=== PATIENT | female | born 1985 | race Caucasian/White ===

== ENCOUNTER 2020-02-12 12:38 | Outpatient (REF) | payer MEDICAID, SELFPAY | END 2020-02-12 12:39 | disposition home or self-care (01) | LOC: HO.LAB 12:38 | PROVIDERS: PCP Nurse Practitioner Family; Visit Provider Internal Medicine | DX: Z20.828 Contact with and (suspected) exposure to other viral communicable diseases (principal) | CPT/HCPCS: 36415; 87635 ==

== ENCOUNTER 2020-07-05 17:08 | Emergency (ER) | payer MEDICAID, SELFPAY ==
--- NOTE | ~2020-07-05 | US_ITS ---
EXAMINATION: US OBSTETRICAL ULTRASOUND CLINICAL INFORMATION: Nausea and vomiting. Rule out ectopic . COMPARISON: None. LMP: 05/19/2020. Gestational age by maternal dates is 6 weeks 5 days. Estimated date of delivery by maternal dates is 02/23/2021. TECHNIQUE: Transabdominal sonographic evaluation of the pelvis. FINDINGS: There is a single intrauterine gestational sac with visible yolk sac, embryo/fetus, and cardiac activity. There is no significant subchorionic hemorrhage or hematoma. HR: 122 beats per minute. CRL (crown rump length): 0.75 cm (6 weeks 5 days +/- 4 days). MEKA (estimated date of delivery): 02/23/2021 +/- 4 days. MATERNAL ADNEXA: The right maternal ovary measures 1.9 x 1.8 x 1 cm. No adnexal mass. The left maternal ovary measures 1.9 x 1.9 x 2 cm. No adnexal mass There is a uterine fibroid noted measuring 1.4 x 1.3 x 1.6 cm. This is seen at the anterior lower uterine segment/body. No maternal pelvic ascites. US/US OB <= 14 weeks fetus IMPRESSION: 1. Single intrauterine gestation with ultrasound gestational age of 6 weeks 5 days +/- 4 days. 2. Estimated date of delivery is 02/23/2021 +/- 4 days. 3. No maternal adnexal mass or pelvic ascites.
[2020-07-05 17:22] VITALS: BP 132/69; PULSE 79; RESP 18; TEMP 37.1; O2SAT 99; BMI 28.0
[2020-07-05 18:27] LABS: MANUAL DIFF FLAG NO
[2020-07-05 18:44] LABS: Basophils Absolute Auto 0.1 X10*3/uL (0.0-0.2); Basophils Percent Auto 0.5 % (0-2); Eosinophils Absolute Auto 0.2 X10*3/uL (0.0-0.4); Eosinophils Percent Auto 2.1 % (0-4); Hematocrit 35.6 % (37-47); Hemoglobin 12.5 g/dl (12.0-16.0); Imm Gran Abs Auto 0.05 X10*3/uL (0.00-0.03); Imm Gran Pct Auto 0.5 % (0.0-0.4); Lymphocytes Percent Auto 32.9 % (20-40); Mean Corpuscular HGB Conc 35.1 g/dl (31.0-35.0); Mean Corpuscular Hemoglobin 32.1 pg (27.0-33.0); Mean Corpuscular Volume 91.5 fL (80-98); Mean Platelet Volume 11.5 fL (9.4-12.3); Monocytes Absolute Auto 0.8 X10*3/uL (0.1-1.2); Monocytes Percent Auto 8.7 % (2-11); Neutrophils Absolute Auto 5.1 X10*3/uL (2.0-8.3); Neutrophils Percent Auto 55.3 % (45-73); Platelet Count 258 X10*3/uL (160-400); Red Blood Count 3.89 X10*6/uL (4.20-5.50); Red Cell Distribution Width 12.5 % (11.0-16.0); White Blood Count 9.2 X10*3/uL (4.8-10.8)
[2020-07-05 19:03] LABS: Anion Gap 12 (12-20); Blood Urea Nitrogen 8 mg/dL (9-16); Calcium 8.6 mg/dL (8.4-10.2); Carbon Dioxide 23 mmol/L (22-29); Chloride 106 mmol/L (96-108); Creatinine Clr Calc Pharmacy 99.3; Estimated Glomerular Filt Rate > 60; Glucose Random 67 mg/dL (60-115); Potassium 3.7 mmol/L (3.3-5.1); Sodium 137 mmol/L (135-145)
[2020-07-05 20:00] VITALS: BP 116/77; PULSE 86; RESP 16; O2SAT 100
[2020-07-05] MEDS: 0.9 % Sodium Chloride 1,000 ML 999 ML IV (21:19)
--- NOTE | 2020-07-05 21:29 | ED_ITS ---
HPI - General Adult General Chief complaint: General Medical Stated complaint: headache n/v Time Seen by Provider: 07/05/20 21:08 Source: patient Mode of arrival: ambulatory History of Present Illness HPI narrative: 35-year-old female G5 P 3-1 presents with nausea and non bilious vomiting as well as headache since Wednesday without associated fevers, chills, shortness of breath, cough, sore throat, diarrhea, urinary pain/burning/frequency, vaginal bleeding, but does describe some intermittent lower pelvic cramping that is not occurring at this time. She does have an upcoming OB appointment and her LMP is 05/19/2020. Related Data Previous Rx's Medication Instructions Recorded pyridoxine (vitamin B6) 25 mg PO TID PRN #30 tab 07/05/20 Allergies Allergy/AdvReac Type Severity Reaction Status Date / Time No Known Allergies Allergy Verified 07/05/20 17:26 Review of Systems Review of Systems: Pertinent positives and negatives as stated in HPI 10 point review of systems is otherwise negative. PMFSH Past Medical History Source: nursing notes reviewed Social History Social History Alcohol intake: former Smoking Status: Unknown if ever smoked Smoked in Last 30 Days: No Use of substances other than those prescribed or required for medical reasons: No Advance Directives: No Advance Directives Information Provided: Yes Physical Exam Vital Signs: Vital Signs: Last Vital Signs Temp 98.7 F 07/05/20 17:22 Pulse 86 07/05/20 20:00 Resp 18 07/05/20 22:00 BP 116/77 07/05/20 20:00 Pulse Ox 100 07/05/20 20:00 Body Mass Index 28.0 VITAL SIGNS: Reviewed. GENERAL: Well developed, well nourished, in no acute distress. HEAD: Normocephalic/atraumatic, EYES: PERRLA, EOMI EARS: Ext canals without abnormality, TMs non-bulging and non-erythematous NOSE: Nares patent bilateral OROPHARYNX: no oral lesions noted, posterior pharynx clear NECK: Supple, no adenopathy LUNGS: Normal breath sounds.SpO2<100> CARDIOVASCULAR: Regular rate and rhythm without noted murmurs ABDOMEN: Soft, non-tender, non-distended with bowel sounds. SKIN: Inspection of the skin reveals no rashes NEUROLOGIC: Alert and oriented x 4. Strength and sensation to light touch were grossly intact x 4. Course Course Course Narrative: This is a 35-year-old female with history and clinical presentation consistent with likely associated nausea and vomiting with subsequent mild dehydration leading to headache. Will rule out infection, confirmed IUP, and treat headache with fluids and Tylenol. Review of all investigations is negative for any acute findings and on re- evaluation patient states that she feels much better and has had complete resolution of her headache after receiving 1 L of IV fluids with Tylenol. She was recommended to follow up with her primary care provider, keep her appointment with her billing collections specialist, and was informed that she would be provided with antinausea medication did to use during . Medical Decision Making Lab Data Result diagrams: 07/05/20 18:12 07/05/20 18:12 Labs: Lab Results 07/05/20 07/05/20 07/05/20 Range/Units 18:12 18:12 22:59 WBC 9.2 (4.8-10.8) X10*3/uL RBC 3.89 L (4.20-5.50) X10*6/uL Hgb 12.5 (12.0-16.0) g/dl Hct 35.6 L (37-47) % MCV 91.5 (80-98) fL MCH 32.1 (27.0-33.0) pg MCHC 35.1 H (31.0-35.0) g/dl RDW 12.5 (11.0-16.0) % Plt Count 258 (160-400) X10*3/uL MPV 11.5 (9.4-12.3) fL Immature Gran % (Auto) 0.5 H (0.0-0.4) % Neut % (Auto) 55.3 (45-73) % Lymph % (Auto) 32.9 (20-40) % [place] % (Auto) 8.7 (2-11) % Eos % (Auto) 2.1 (0-4) % Baso % (Auto) 0.5 (0-2) % Lymph # (Auto) 3.0 (1.2-4.9) X10*3/uL [place] # (Auto) 0.8 (0.1-1.2) X10*3/uL Eos # (Auto) 0.2 (0.0-0.4) X10*3/uL Baso # (Auto) 0.1 (0.0-0.2) X10*3/uL Abs Immat Gran (auto) 0.05 H (0.00-0.03) X10*3/uL Absolute Neuts (auto) 5.1 (2.0-8.3) X10*3/uL Absolute Nucleated RBC 0.000 (0.0-0.012) X10*3/uL Nucleated RBC % (auto) 0.0 (0.0-0.2) /100WBC Sodium 137 (135-145) mmol/L Potassium 3.7 (3.3-5.1) mmol/L Chloride 106 (96-108) mmol/L Carbon Dioxide 23 (22-29) mmol/L Anion Gap 12 (12-20) BUN 8 L (9-16) mg/dL Creatinine 0.56 (0.5-1.4) mg/dL Estim Creat Clear Calc 99.3 Estimated GFR > 60 Random Glucose 67 (60-115) mg/dL Calcium 8.6 (8.4-10.2) mg/dL Beta HCG, Quant [id number] mIU/mL Urine Color DARK YELLOW Urine Appearance CLEAR Urine pH 6.0 (5.0-8.0) Ur Specific [place] >= 1.030 H (1.005-1.025) Urine Protein NEG (NEG-TRACE) MG/DL Urine Glucose (UA) NEG (NEG) MG/DL Urine Ketones 40 (NEG) MG/DL Urine Blood NEG (NEG) Urine Nitrite NEG (NEG) Ur Leukocyte Esterase NEG (NEG) Discharge Plan Discharge Clinical Impression: Nausea and vomiting during , Dehydration Headache Qualifiers: Headache type: unspecified Headache chronicity pattern: chronic headache Intractability: not intractable Qualified Code(s): R51.9 - Headache, unspecified Patient Disposition: Home, Self-Care Instructions: Nausea and Vomiting in (ED), (ED), First Trimester (ED) Additional Instructions: 1. Tylenol 1000 mg, orally, every 6 hours as needed for headache or body aches during . Do not exceed 4000 mg within 24 hours. 2. A prescription for antinausea medication has been sent to your pharmacy to use during her , in addition you will need to increase your fluid hydration given the fact that you are and that should be done with water. 3. Follow-up with your primary care provider and keep your appointment with your billing collections specialist. Do not hesitate to return the emergency department should you develop any acute worsening of symptoms that include vaginal bleeding, pelvic pain/cramping. Prescriptions: New pyridoxine (vitamin B6) 25 mg tablet 25 mg PO TID PRN (Reason: nausea and vomiting) Qty: 30 RF: 0 Referrals: Kemi Rodriguez NP [Primary Care Provider] - 2 days (Re-evaluation outpatient man agement of nausea and vomiting during . Patient was provided with a vitamin B 6 prescription.)
[2020-07-05 22:00] VITALS: RESP 18
[2020-07-05] MEDS: Acetaminophen 325 MG TABLET 975 MG PO (22:04)
[2020-07-05] MEDS: ondansetron HCL 4 MG/2 ML VIAL IVPUSH (22:05)
[2020-07-05 23:44] LABS: Glucose Urine UA NEG (NEG); Leukocyte Esterase Urine NEG (NEG); Nitrite Urine NEG (NEG); Specific Gravity - Urine >= 1.030 (1.005-1.025); Urine Blood NEG (NEG); Urine Ketones 40 MG/DL (NEG); Urine Protein NEG (NEG-TRACE)
[2020-07-05 23:53] LABS: Appearance Urine CLEAR; Color Urine DARK YELLOW
== END 2020-07-06 00:38 | disposition home or self-care (01) ==
PROVIDERS: Emergency Provider Student in an Organized Health Care Education/Training Program; PCP Nurse Practitioner Family
DX: O26.91 Pregnancy related conditions, unspecified, first trimester (principal); R51.9 Headache, unspecified; R11.2 Nausea with vomiting, unspecified; E86.0 Dehydration; Z3A.01 Less than 8 weeks gestation of pregnancy
CPT/HCPCS: 36415; 76801; 80048; 81003; 84702; 85025; 96361; 96374; 99284; J2405

== ENCOUNTER → 2020-07-08 13:25 | Outpatient (BNVA) | payer MEDICAID, SELFPAY | PROVIDERS: PCP Nurse Practitioner Family; Visit Provider Advanced Practice Midwife | DX: O21.9 Vomiting of pregnancy, unspecified (principal); N92.6 Irregular menstruation, unspecified | CPT/HCPCS: 81025; 99212 ==

== ENCOUNTER 2020-07-16 13:26 | Outpatient (REF) | payer MEDICAID, SELFPAY | END 2020-07-16 13:27 | disposition home or self-care (01) | LOC: HO.US 13:26 | PROVIDERS: Visit Provider Advanced Practice Midwife | DX: Z13.89 Encounter for screening for other disorder (principal) ==

== ENCOUNTER → 2020-07-17 09:58 | Outpatient (BNVA) | payer MEDICAID, SELFPAY | PROVIDERS: PCP Nurse Practitioner Family; Visit Provider Advanced Practice Midwife | DX: Z13.89 Encounter for screening for other disorder (principal) | CPT/HCPCS: 99212 ==

== ENCOUNTER 2020-07-29 10:33 | Outpatient (REF) | payer MEDICAID, SELFPAY ==
[2020-07-29 12:00] LABS: MANUAL DIFF FLAG NO
[2020-07-29 12:07] LABS: Basophils Percent Auto 0.5 % (0-2); Eosinophils Absolute Auto 0.2 X10*3/uL (0.0-0.4); Hematocrit 36.5 % (37-47); Hemoglobin 12.6 g/dl (12.0-16.0); Imm Gran Abs Auto 0.01 X10*3/uL (0.00-0.03); Imm Gran Pct Auto 0.1 % (0.0-0.4); Lymphocytes Absolute Auto 1.9 X10*3/uL (1.2-4.9); Lymphocytes Percent Auto 23.1 % (20-40); Mean Corpuscular HGB Conc 34.5 g/dl (31.0-35.0); Mean Corpuscular Hemoglobin 31.3 pg (27.0-33.0); Mean Corpuscular Volume 90.6 fL (80-98); Mean Platelet Volume 11.9 fL (9.4-12.3); Monocytes Absolute Auto 0.5 X10*3/uL (0.1-1.2); Monocytes Percent Auto 6.2 % (2-11); Neutrophils Absolute Auto 5.4 X10*3/uL (2.0-8.3); Neutrophils Percent Auto 67.1 % (45-73); Platelet Count 296 X10*3/uL (160-400); Red Blood Count 4.03 X10*6/uL (4.20-5.50); Red Cell Distribution Width 12.3 % (11.0-16.0); White Blood Count 8.1 X10*3/uL (4.8-10.8)
[2020-07-29 12:35] LABS: Amphetamine Screen Urine Not Detected (Not Detect); Barbiturates, Urine Not Detected (Not Detect); Benzodiazepines Screen Urine Not Detected (Not Detect); Cannabinoid Screen Urine Not Detected (Not Detect); Cocaine Screen Urine Not Detected (Not Detect); Opiate Screen Urine Not Detected (Not Detect); Phencyclidine Screen Urine Not Detected (Not Detect)
[2020-07-29 12:56] LABS: Syphilis Screen Nonreactive (Nonreactive)
[2020-07-30 04:25] LABS: HBsAGNum1 0.14 S/CO (0.00-0.99); HIV AB/AG Nonreactive (Nonreactive); HIV Num 1 0.07 S/CO (0.00-0.99); Hepatitis B Surface Antigen Negative (Negative)
[2020-07-30 04:36] LABS: ~HepC Num1 0.12 S/CO (0.00-0.79); ~Hepatitis C Antibody Nonreactive (Nonreactive)
[2020-07-30 17:31] LABS: Rubella IgG Antibody 1.48 Index
== END 2020-07-29 10:34 | disposition home or self-care (01) ==
LOC: HO.LAB 10:33
PROVIDERS: PCP Nurse Practitioner Family; Visit Provider Advanced Practice Midwife
DX: Z34.90 Encounter for supervision of normal pregnancy, unspecified, unspecified trimester (principal)
CPT/HCPCS: 80307; 85025; 86762; 86780; 86787; 86803; 86850; 86900; 86901; 87086; 87340; 87389

== ENCOUNTER 2020-08-09 11:18 | Outpatient (REF) | payer MEDICAID, SELFPAY ==
--- NOTE | ~2020-08-09 | US_ITS ---
EXAMINATION: OBSTETRICAL ULTRASOUND, FIRST TRIMESTER HISTORY: 35-year-old at 11.5 weeks of gestation NT screening COMPARISON: 07/05/2020 TECHNIQUE: Real time transabdominal imaging with color and M-mode Doppler. FINDINGS: A single, live IUP CRL of 52 mm c/w 11.6wks is noted. Heart Rate: 152 beats per minute. Normal yolk sac seen. NT was 1.5.mm. NB present The embryo appears sonographically wnl for this GA. Both maternal ovaries are seen and appear normal. GESTATIONAL AGE: 1. Established GA: 11.5 wks 2. GA from [facility]: 11.6 wks ESTIMATED DATE OF DELIVERY: 1. Established MEKA: 02/23/2021 2. [facility]KA from [facility]: 02/22/2021 US/US OB 1T nuc measure IMPRESSION: 1. A single live IUP 2. Size equals dates 3. NT of 1.5 mm MFM Consultation: I reviewed the ultrasound findings along with significance of NT measurement. The NT of less than 3mm is generally reassuring. However, the sensitivity for T21 detection is only 60%. I reviewed the availability of serum aneuploidy screening which includes cell-free DNA and placental protein based tests. I discussed the sensitivity, false-positive rate, and other limitations associated with each test. I also reviewed the availability of invasive diagnostic tests that are associated small but definite risk of miscarriage. We also reviewed the differences between screening tests and diagnostic tests. After our discussion, she opted for the First trimester screening that is based on cell-free DNA or non-invasive testing (NIPT). The result will be faxed to your office in approximately 7 days. A follow up at 18 weeks for survey has been scheduled. Thank you very much for this referral. Total time 30 minutes. The time spent was devoted to counseling the patient about the disease and diagnosis, coordinating care including reviewing her records, pertinent lab data and studies, as well as discussing diagnostic evaluation and workup, plan therapeutic interventions and future disposition of care. This includes any additional research needed to obtain further information in formulating the plan of care of this patient. This note was generated with a voice recognition program. Please excuse any errors which may have been overlooked during my review of this note. Sometimes these errors may affect the content or meaning of a given sentence.
== END 2020-08-09 11:19 | disposition home or self-care (01) ==
LOC: HO.US 11:18
PROVIDERS: Visit Provider Advanced Practice Midwife
DX: Z34.90 Encounter for supervision of normal pregnancy, unspecified, unspecified trimester (principal); Z36.82 Encounter for antenatal screening for nuchal translucency
CPT/HCPCS: 76813

== ENCOUNTER 2020-08-14 10:37 | Outpatient (REF) | payer MEDICAID, SELFPAY ==
[2020-08-14 16:14] LABS: CT PCR NOT DETECTED (Not Detect.); NG PCR NOT DETECTED (Not Detect.)
[2020-08-15 09:18] LABS: BV Int Neg Control Negative (Negative); BV Int Pos Control Positive (Positive)
== END 2020-08-14 10:38 | disposition home or self-care (01) ==
LOC: HO.LAB 10:37
PROVIDERS: PCP Nurse Practitioner Family; Visit Provider Advanced Practice Midwife
DX: Z34.90 Encounter for supervision of normal pregnancy, unspecified, unspecified trimester (principal)
CPT/HCPCS: 81003; 87480; 87491; 87510; 87591; 87660; 99212

== ENCOUNTER → 2020-09-19 11:36 | Outpatient (BNVA) | payer MEDICAID, SELFPAY | PROVIDERS: Visit Provider Advanced Practice Midwife ==

== ENCOUNTER → 2020-09-25 10:36 | Outpatient (BNVA) | payer MEDICAID, SELFPAY | PROVIDERS: Visit Provider Advanced Practice Midwife | DX: Z34.92 Encounter for supervision of normal pregnancy, unspecified, second trimester (principal); Z3A.18 18 weeks gestation of pregnancy | CPT/HCPCS: 81003; 99212 ==

== ENCOUNTER 2020-10-18 10:43 | Outpatient (REF) | payer MEDICAID, SELFPAY ==
--- NOTE | ~2020-10-18 | US_ITS ---
EXAMINATION: US OBSTETRICAL CLINICAL INFORMATION: 35-year-old at 21.5 weeks of gestation Screening for anatomy COMPARISON: 08/09/2020 TECHNIQUE: Real-time transabdominal ultrasound was performed using C1-5 megahertz transducer. FINDINGS: A single, active, fetus is seen in vertex presentation. The placenta is posterior without previa, and the amniotic fluid volume is wnl. MEASUREMENTS: 1. Biparietal Diameter: 5.2 cm; 21.6 wks 2. Occipital Frontal Diameter: 7.0 cm 3. Head Circumference: 20.1 cm; 22.2 wks 4. Abdominal Circumference: 17.3 cm; 22.2 wks 5. Femur Length: 3.5 cm; 21.1 wks 6. Humerus Length: 3.7 cm; 22.6 wks 7. Tibia Length: 3.32 cm; 22.2 wks 8. Ulna Length: 3.1 cm; 21.3 wks 9. Lateral ventricle: 0.5 cm 10. Cerebellum: 2.4 cm; 23.5 wks 11. Cisterna Magna: 0.7 cm 12. Nuchal Fold: 4.9 mm 13. Heart Rate: 133 beats per minute Rt ovary: Unable to visualize Lt ovary: Unable to visualize Cervical length 4.1 cm on T/A. GESTATIONAL AGE: 1. Established GA: 21.5 wks 2. GA from [facility]: 22.0 wks ESTIMATED DATE OF DELIVERY: 1. Established MEKA: 02/23/2021 2. MEKA from [facility]: 02/21/2021 ANATOMY: The visualized anatomy includes but not limited to: 1. Cranium: Normal 2. Intracranial anatomy: cavum septum pellucidi, lateral ventricles, choroid plexus, cerebellum, posterior fossa, third and fourth ventricles. 3. face: orbits, lip/palate, profile, nasal bone 4. Heart: four-chamber view of the heart, ventricular septum, foramen ovale, pulmonary vein, left and right outflow tracts, three-vessel view, 3 vessel trachea view, aortic and ductal arches, situs.. 5. Diaphragm: Normal 6. Abdominal wall: Normal 7. Cord Insertion: Normal 8. Spine: Cervical, thoracic, lumbar, sacral. 9. Stomach: Normal size and shape 10. Right Kidney: Normal 11. Left Kidney: Normal 12. 3 vessel cord: Normal 13. Upper extremity: Open hands, fifth digit. 14. Lower extremity: Tibia, fibula, bilateral feet. 15. Bladder: Normal 16. Genitalia: Male, patient aware Small posterior fibroid measuring 2.6 x 1.9 x 3.2 cm. US/US OB /maternal detail IMPRESSION: 1. Single, living, intrauterine with appropriate biometry. 2. Normal survey DISCUSSION: I reviewed today's ultrasound findings. We discussed the limitations of ultrasound in diagnosing aneuploidy and other congenital abnormalities. I reviewed the differences between screening test and diagnostic test. Amniocentesis was discussed and declined. She was informed that the baseline incidence of congenital abnormalities is approximately 3-5%. Not all these conditions are diagnosable in utero. RECOMMENDATIONS 1. Follow-up when necessary Thank you for allowing me to participate in her care. Total time 30 minutes. The time spent was devoted to counseling the patient about the disease and diagnosis, coordinating care including reviewing her records, pertinent lab data and studies, as well as discussing diagnostic evaluation and workup, plan therapeutic interventions and future disposition of care. This includes any additional research needed to obtain further information in formulating the plan of care of this patient. This note was generated with a voice recognition program. Please excuse any errors which may have been overlooked during my review of this note. Sometimes these errors may affect the content or meaning of a given sentence.
== END 2020-10-18 10:44 | disposition home or self-care (01) ==
LOC: HO.US 10:43
PROVIDERS: PCP Nurse Practitioner Family; Visit Provider Advanced Practice Midwife
DX: Z36.3 Encounter for antenatal screening for malformations (principal)
CPT/HCPCS: 76811

== ENCOUNTER → 2020-10-23 10:34 | Outpatient (BNVA) | payer MEDICAID, SELFPAY | PROVIDERS: PCP Nurse Practitioner Family; Visit Provider Advanced Practice Midwife | DX: Z34.92 Encounter for supervision of normal pregnancy, unspecified, second trimester (principal); Z3A.22 22 weeks gestation of pregnancy | CPT/HCPCS: 81003; 99212 ==

== ENCOUNTER 2020-11-20 11:06 | Outpatient (REF) | payer MEDICAID, SELFPAY ==
[2020-11-20 14:34] LABS: Hematocrit 34.5 % (37-47); Hemoglobin 11.4 g/dl (12.0-16.0); Mean Corpuscular Hemoglobin 31.2 pg (27.0-33.0); Mean Corpuscular Volume 94.5 fL (80-98); Mean Platelet Volume 11.9 fL (9.4-12.3); Platelet Count 252 X10*3/uL (160-400); Red Blood Count 3.65 X10*6/uL (4.20-5.50); Red Cell Distribution Width 12.8 % (11.0-16.0)
[2020-11-20 14:54] LABS: Glucose 1 Hour PP 50gm Dose 104 mg/dL (60-140)
[2020-11-20 15:35] LABS: Syphilis Screen Nonreactive (Nonreactive)
== END 2020-11-20 11:07 | disposition home or self-care (01) ==
LOC: HO.LAB 11:06
PROVIDERS: PCP Nurse Practitioner Family; Visit Provider Obstetrics & Gynecology
DX: Z23 Encounter for immunization (principal); Z34.92 Encounter for supervision of normal pregnancy, unspecified, second trimester; Z3A.26 26 weeks gestation of pregnancy
CPT/HCPCS: 36415; 85027; 86780; 90471; 90715; 99212

== ENCOUNTER → 2020-12-04 10:53 | Outpatient (BNVA) | payer MEDICAID, SELFPAY | PROVIDERS: Visit Provider Advanced Practice Midwife | DX: Z34.93 Encounter for supervision of normal pregnancy, unspecified, third trimester (principal); Z3A.28 28 weeks gestation of pregnancy | CPT/HCPCS: 81003; 99212 ==

== ENCOUNTER → 2020-12-23 10:53 | Outpatient (BNVA) | payer MEDICAID, SELFPAY | PROVIDERS: Visit Provider Advanced Practice Midwife | DX: Z34.83 Encounter for supervision of other normal pregnancy, third trimester (principal); Z3A.31 31 weeks gestation of pregnancy | CPT/HCPCS: 81003; 99212 ==

== ENCOUNTER → 2021-01-06 10:43 | Outpatient (BNVA) | payer MEDICAID, SELFPAY | PROVIDERS: Visit Provider Advanced Practice Midwife | DX: O99.513 Diseases of the respiratory system complicating pregnancy, third trimester (principal); J45.909 Unspecified asthma, uncomplicated; Z3A.33 33 weeks gestation of pregnancy; Z23 Encounter for immunization; Z79.899 Other long term (current) drug therapy | CPT/HCPCS: 81003; 90471; 90715; 99212 ==

== ENCOUNTER 2021-01-29 10:54 | Outpatient (REF) | payer MEDICAID, SELFPAY ==
[2021-01-29 17:14] LABS: CT PCR NOT DETECTED (Not Detect.); NG PCR NOT DETECTED (Not Detect.)
[2021-01-30 10:58] LABS: BV Int Neg Control Negative (Negative); BV Int Pos Control Positive (Positive)
== END 2021-01-29 10:55 | disposition home or self-care (01) ==
LOC: HO.LAB 10:54
PROVIDERS: Visit Provider Advanced Practice Midwife
DX: O26.893 Other specified pregnancy related conditions, third trimester (principal); R21 Rash and other nonspecific skin eruption; N89.8 Other specified noninflammatory disorders of vagina; Z20.2 Contact with and (suspected) exposure to infections with a predominantly sexual mode of transmission; Z3A.36 36 weeks gestation of pregnancy
CPT/HCPCS: 81003; 87081; 87480; 87491; 87510; 87591; 87660; 99212

== ENCOUNTER → 2021-02-05 11:48 | Outpatient (BNVA) | payer MEDICAID, SELFPAY | PROVIDERS: Visit Provider Advanced Practice Midwife | DX: Z34.83 Encounter for supervision of other normal pregnancy, third trimester (principal); Z3A.37 37 weeks gestation of pregnancy | CPT/HCPCS: 99212 ==

== ENCOUNTER → 2021-02-18 10:54 | Outpatient (BNVA) | payer MEDICAID, SELFPAY | PROVIDERS: Visit Provider Advanced Practice Midwife | DX: Z34.83 Encounter for supervision of other normal pregnancy, third trimester (principal); Z3A.39 39 weeks gestation of pregnancy | CPT/HCPCS: 81003; 99212 ==

== ENCOUNTER → 2021-04-02 11:29 | Outpatient (BNVA) | payer MEDICAID, SELFPAY | PROVIDERS: Visit Provider Advanced Practice Midwife | DX: Z39.2 Encounter for routine postpartum follow-up (principal); Z30.09 Encounter for other general counseling and advice on contraception | CPT/HCPCS: 99212 ==

== ENCOUNTER → 2021-04-07 12:59 | Outpatient (BNVA) | payer MEDICAID, SELFPAY | PROVIDERS: PCP Nurse Practitioner Family; Visit Provider Advanced Practice Midwife | DX: Z30.42 Encounter for surveillance of injectable contraceptive (principal) | CPT/HCPCS: 96372; 99211 ==

== ENCOUNTER → 2021-04-15 11:57 | Outpatient (BNVA) | payer MEDICAID, SELFPAY | PROVIDERS: PCP Nurse Practitioner Family; Visit Provider Obstetrics & Gynecology ==

== ENCOUNTER 2021-08-14 15:04 | Outpatient (REF) | payer MEDICAID, SELFPAY ==
[2021-08-15 04:00] LABS: CT PCR NOT DETECTED (Not Detect.); NG PCR NOT DETECTED (Not Detect.)
== END 2021-08-14 15:05 | disposition home or self-care (01) ==
LOC: HO.LAB 15:04
PROVIDERS: PCP Internal Medicine; Visit Provider Advanced Practice Midwife
DX: Z30.430 Encounter for insertion of intrauterine contraceptive device (principal); Z20.2 Contact with and (suspected) exposure to infections with a predominantly sexual mode of transmission
CPT/HCPCS: 58300; 87491; 87591

== ENCOUNTER 2021-08-21 11:00 | Outpatient (RCR) | payer MEDICAID, SELFPAY | END 2021-09-03 11:25 | disposition home or self-care (01) | LOC: HO.PT 11:00 | PROVIDERS: PCP Internal Medicine; Visit Provider Internal Medicine | DX: M79.651 Pain in right thigh (principal) | CPT/HCPCS: 97112; 97161; 97530 ==

== ENCOUNTER → 2021-11-07 11:30 | Outpatient (BNVA) | payer MEDICAID, SELFPAY | PROVIDERS: PCP Internal Medicine; Visit Provider Advanced Practice Midwife | DX: Z30.431 Encounter for routine checking of intrauterine contraceptive device (principal) | CPT/HCPCS: 99212 ==

== ENCOUNTER 2022-03-16 12:00 | Outpatient (REF) | payer MEDICAID, SELFPAY ==
--- NOTE | ~2022-03-16 | XR_ITS ---
EXAMINATION: XR HIP, RIGHT WITH AP PELVIS CLINICAL INFORMATION: Pain of several months duration, without injury. COMPARISON: None TECHNIQUE: AP and frog-leg lateral views of the right hip are submitted, together with a frontal view the pelvis. FINDINGS: Bones and soft tissues are normal. No fracture. Alignment is anatomic. Hip joint spaces are well-maintained. The bilateral sacroiliac joints are symmetric and intact. The pubic symphysis is intact. No foreign body is noted. XR/XR hip RT w PEL1V IMPRESSION: Normal right hip and AP pelvis.
== END 2022-03-16 12:01 | disposition home or self-care (01) ==
LOC: HO.XRAY 12:00
PROVIDERS: PCP Internal Medicine; Visit Provider Internal Medicine
DX: M25.551 Pain in right hip (principal)
CPT/HCPCS: 73502

== ENCOUNTER → 2022-05-15 11:09 | Outpatient (BNVA) | payer MEDICAID, SELFPAY | PROVIDERS: PCP Internal Medicine; Visit Provider Advanced Practice Midwife | DX: Z13.89 Encounter for screening for other disorder (principal) ==

== ENCOUNTER 2022-08-01 09:52 | Emergency (ER) | payer MEDICAID, SELFPAY ==
--- NOTE | ~2022-08-01 | XR_ITS ---
EXAMINATION: XR CHEST CLINICAL INFORMATION: Cough. COMPARISON: Chest 09/07/2014 TECHNIQUE: 2 views of the chest were obtained. FINDINGS: No significant abnormality is noted involving the heart, lungs, mediastinum, bony thorax or soft tissues. XR/XR chest 2V IMPRESSION: Unremarkable chest examination.
[2022-08-01 09:57] VITALS: BP 147/94; PULSE 90; RESP 18; TEMP 36.3; O2SAT 96; BMI 42.5
[2022-08-01 10:58] LABS: Influenza A PCR NEGATIVE (Negative); Influenza B PCR NEGATIVE (Negative); Resp Syncy Virus RNA Qual PCR NEGATIVE (Negative); SARS COV2 PCR INHOUSE NEGATIVE (Negative)
[2022-08-01 11:56] VITALS: BP 110/65; PULSE 74; RESP 18; O2SAT 99
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
== END 2022-08-01 12:22 | disposition home or self-care (01) ==
PROVIDERS: Emergency Provider Emergency Medicine
DX: J40 Bronchitis, not specified as acute or chronic (principal); Z20.822 Contact with and (suspected) exposure to COVID-19; Z20.828 Contact with and (suspected) exposure to other viral communicable diseases
CPT/HCPCS: 0241U; 71046; 99283

== ENCOUNTER 2023-05-07 11:18 | Outpatient (REF) | payer MEDICAID, SELFPAY ==
[2023-05-07 14:00] LABS: Alanine Aminotransferase 13 U/L (0-31); Albumin Level 3.9 g/dL (3.5-5.0); Alkaline Phosphatase 91 U/L (39-117); Anion Gap 11 (12-20); Aspartate Amino Transferase 15 U/L (5-31); Bilirubin Total 0.7 mg/dL (0.0-1.0); Blood Urea Nitrogen 10 mg/dL (9-16); Calcium 8.9 mg/dL (8.4-10.2); Carbon Dioxide 24 mmol/L (22-29); Chloride 106 mmol/L (96-108); Cholesterol 132 mg/dL (<200); Estimated Glomerular Filt Rate > 60; Glucose Random 73 mg/dL (60-115); HDL Cholesterol 49 mg/dL (>40); LDL Cholesterol Calculated 73 mg/dL (<100); Sodium 137 mmol/L (135-145); Total Protein 7.5 g/dL (6.5-8.0); Triglycerides 53 mg/dL (<150)
== END 2023-05-07 11:19 | disposition home or self-care (01) ==
LOC: HO.HHCL 11:18
PROVIDERS: Visit Provider Nurse Practitioner Family
DX: Z68.38 Body mass index [BMI] 38.0-38.9, adult (principal)
CPT/HCPCS: 36415; 80053; 80061

== ENCOUNTER 2023-07-08 14:23 | Outpatient (REF) | payer MEDICAID, SELFPAY ==
[2023-07-16 02:49] LABS: HPV mRNA E6/E7 rflx Not Detected (Not Detected)
== END 2023-07-08 14:24 | disposition home or self-care (01) ==
LOC: HO.HHCLNP 14:23
PROVIDERS: Visit Provider Advanced Practice Midwife
DX: Z01.419 Encounter for gynecological examination (general) (routine) without abnormal findings (principal); R30.0 Dysuria
CPT/HCPCS: 87086; 87624; 88142

== ENCOUNTER 2023-09-17 09:11 | Outpatient (REF) | payer MEDICAID, SELFPAY | END 2023-09-17 09:12 | disposition home or self-care (01) | LOC: HO.SH 09:11 | PROVIDERS: Visit Provider Nurse Practitioner Family | DX: Z01.118 Encounter for examination of ears and hearing with other abnormal findings (principal); H93.293 Other abnormal auditory perceptions, bilateral | CPT/HCPCS: 92557 ==

== ENCOUNTER 2024-05-05 02:13 | Emergency (ER) | payer MEDICAID, SELFPAY ==
[2024-05-05] VITALS (7 sets, daily range): BP systolic 90–132; BP diastolic 39–86; PULSE 101–128; RESP 18–20; TEMP 36.4–37.1; O2SAT 95–99; BMI 41.3
[2024-05-05] MEDS: Ondansetron ODT 4 MG TAB.RAPDIS TRANSLINGU (02:37)
[2024-05-05 02:45] LABS: MANUAL DIFF FLAG NO
[2024-05-05 02:48] LABS: Basophils Percent Auto 0.2 % (0-2); Eosinophils Absolute Auto 0.3 X10*3/uL (0.0-0.4); Hematocrit 41.5 % (37.0-47.0); Hemoglobin 14.5 g/dl (12.0-16.0); Imm Gran Abs Auto 0.04 X10*3/uL (0.00-0.03); Imm Gran Pct Auto 0.3 % (0.0-0.4); Lymphocytes Absolute Auto 0.6 X10*3/uL (1.2-4.9); Lymphocytes Percent Auto 4.3 % (20-40); Mean Corpuscular HGB Conc 34.9 g/dl (31.0-35.0); Mean Corpuscular Hemoglobin 30.7 pg (27.0-33.0); Mean Corpuscular Volume 87.7 fL (80.0-98.0); Mean Platelet Volume 10.8 fL (9.4-12.3); Monocytes Absolute Auto 0.6 X10*3/uL (0.1-1.2); Monocytes Percent Auto 4.3 % (2-11); Neutrophils Absolute Auto 13.3 x10*3/uL (2.0-8.3); Neutrophils Percent Auto 88.9 % (45-73); Platelet Count 294 X10*3/uL (160-400); Red Blood Count 4.73 X10*6/uL (4.20-5.50); Red Cell Distribution Width 12.6 % (11.0-16.0); White Blood Count 14.9 X10*3/uL (4.8-10.8)
[2024-05-05 03:14] LABS: Alanine Aminotransferase 18 U/L (0-31); Albumin Level 4.3 g/dL (3.5-5.0); Alkaline Phosphatase 108 U/L (39-117); Anion Gap 13 (12-20); Aspartate Amino Transferase 22 U/L (5-31); Bilirubin Total 1.2 mg/dL (0.0-1.0); Blood Urea Nitrogen 16 mg/dL (9-16); Calcium 9.2 mg/dL (8.4-10.2); Carbon Dioxide 23 mmol/L (22-29); Chloride 104 mmol/L (96-108); Creatinine Clr Calc Pharmacy 105.4; Estimated Glomerular Filt Rate > 60; Glucose Random 133 mg/dL (60-115); Potassium 4.2 mmol/L (3.3-5.1); Sodium 136 mmol/L (135-145); Total Protein 8.4 g/dL (6.5-8.0)
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
[2024-05-05] MEDS: 0.9 % Sodium Chloride 1,000 ML 999 ML IVCONT ×2 (07:35→07:36)
--- NOTE | 2024-05-05 07:42 | PC.NURSE ---
resting quietly in room. IV established, fluids infusing at this time. complaining of 9/10 abdominal pain w/ nausea that has improved with zofran. call fried within reach.
[2024-05-05 08:04] LABS: HCG Quantitative < 2 mIU/mL
[2024-05-05] MEDS: Ketorolac Tromethamine 15 MG/ML VIAL IVPUSH (08:41)
[2024-05-05 09:14] LABS: Influenza A PCR NEGATIVE (Negative); Influenza B PCR NEGATIVE (Negative); Resp Syncy Virus RNA Qual PCR NEGATIVE (Negative); SARS COV2 PCR INHOUSE NEGATIVE (Negative)
[2024-05-05 09:15] LABS: Appearance Urine Cloudy; Color Urine Yellow; Glucose Urine UA Negative (Negative); Leukocyte Esterase Urine Small (1+) (Negative); Nitrite Urine Negative (Negative); Specific Gravity - Urine 1.025 (1.005-1.025); UMIC TRIGGER UACC YES; Urine Blood Trace (Negative); Urine Ketones Negative (Negative); Urine Protein Negative (Neg-Trace)
[2024-05-05 09:27] LABS: Bacteria Urine 3+ (None Seen); Hyaline Casts Urine 0-2 /LPF (0-2); UACC Culture Trigger YES; WBC Urine 0-5 /HPF (0-5)
--- NOTE | 2024-05-05 09:28 | PC.NURSE ---
previously PO challenged with juice, patient reports no vomiting. also reports improvement in pain s/p pain medication administration.
== END 2024-05-05 11:55 | disposition home or self-care (01) ==
PROVIDERS: Emergency Provider Emergency Medicine
DX: R11.2 Nausea with vomiting, unspecified (principal); R42 Dizziness and giddiness; Z79.899 Other long term (current) drug therapy; Z03.818 Encounter for observation for suspected exposure to other biological agents ruled out
CPT/HCPCS: 0241U; 36415; 80053; 81001; 84702; 85025; 87086; 96361; 96374; 99284; 99285; J1885

== ENCOUNTER 2024-07-11 16:47 | Outpatient (REF) | payer MEDICAID, SELFPAY ==
--- OUTSIDE RECORDS SUMMARY | 2024-07-11 20:21 | XMS_ITS | Encounter Summary ---
Author Organization [employer] Address [address] [facility] [address] [place] [address] Care Team Providers Care Varnishing Unit Tool Setter Name Role Phone Potter [facility] Primary Care Provider [phone] Reason for Visit * Reason Comments Care Coordination CM/CHW outreach Encounter Details Date Type Department Care Team (Latest Contact Info) Description 06/20/2024 Patient Outreach [facility] [address] [place], [place] [phone] [facility] [address] [place] [address] Care Coordination (CM/CHW outreach) Social History Tobacco Use Types Packs/Day Years Used Date Smoking Tobacco: Never Smokeless Tobacco: Never Alcohol Use Standard Drinks/Week Comments Never 0 (1 standard drink = 0.6 oz pur e alcohol) Depression Answer Date Recorded Patient Health Questionnaire-9 Score 0 06/26/2022 Housing Stability Answer Date Recorded What is your housing situation today? I have yelena diaz 12/14/[address] you li ve. Do you have problems with any of the following? None of the above 12/14/2023 Food Insecurity Answer Date Recorded Within the past 12 months, y ou worried that your food would run out before you got money to buy more: Never True 12/14/2023 Within the past 12 months,th e food you bought just didn't last and you didn't have enough money to get more: Never True 10/2023 Transportation Answer Date Recorded In the past 12 months, has l ack of transportation kept you from medical appts, meetings, work or from getting things needed for daily living? No 12/14/2023 Utilities Answer Date Recorded In the past 12 months, has t he electric, gas, oil or water company threatened to shut off services in your home? No 12/14/2023 Depression Answer Date Recorded Patient Health Questionnaire-2 Score 0 05/07/2023 Internet Access Answer Date Recorded Internet Access Q1 Yes 01/10/2024 Internet Access Q2 Not on file 01/10/2024 Comments No Sex and Gender Information Value Date Recorded Sex Assigned at Female 03/09/2022 10:14 AM EDT Legal Sex Female 10:14 AM EDT Gender Identity Female 03/09/2022 10:14 AM EDT Sexual Orientation Straight 03/09/2022 10 :14 AM EDT documented as of this encounter Progress Notes * Dione Nevarez - 06/20/2024 10:29 AM EST CHW Dione Nevarez, placed outbound call to patient introducing herself from [facility] CM Department, in regard to offering services. Patient's name and was confirmed. Patient agrees to participate in program. Appt. for initial assessment scheduled for 07/05/24 @ 10AM tele with ZIGGY Lopez RN. CHW reinforced direct contact information or CM for any additional questions or concerns and extended clinic hours on Mondays and Wednesdays, and Walk-In Urgent Care Located in [facility]. Patient provided with after-hours line for [facility], ,which offer nighttime triage service and option to transfer to transmission supervisor provider if needed. Patient v erbalizes understanding, and able to repeat back to staff writer. documented in this encounter Plan of Treatment Not on file documented as of this encounter Visit Diagnoses Not on filedocumented in this encounter Additional Health Concerns Assessment Noted Time PHQ-9 Depression Total Score: 0 06/26/19 23 9:43 AM EST documented as of this encounter Care Teams Varnishing Unit Tool Setter Relationship Specialty Start Date End Date Zoe Plascencia FNP [address] [place] [id number] PCP - General Family Medicine 01/11/24 documented as of this encounter
--- OUTSIDE RECORDS SUMMARY | 2024-07-11 20:21 | XMS_ITS | Encounter Summary ---
Author Organization [employer] [facility] Address [address] [facility] [address] [place] [address] Care Team Providers Care Matcher Name Role Phone Zoe Plascencia Primary Care Provider [phone] Reason for Referral * Consultation (Routine) - Authorized Specialty Diagnoses / Procedures Referred By Sugey lopez Referred To Contact Allergy Diagnoses Mild persistent asthma without complication Allergic rhinitis, unspecified seasonality, unspecified trigger Zoe Plascencia FNP [address] [place], [place] Phone: tel: fax: Allergy & Immunology, [facility] ([facility]) [address] [place], [place] Phone: tel: fax: Referral ID Status Reason Start Date Expiration Date Visits Requested Visits Authorized [id number] Authorized Specialty Services Required 07/06/2024 07/06/2025 6 6 * Consultation (Routine) - Closed Specialty Diagnoses / Procedures Referred By Sugey lopez Referred To Contact Physical Therapy Diagnoses Greater trochanteric pain syndrome Zoe Plascencia FNP [address] [place] [address] Phone: tel: fax: Physical Therapy, AT [address] [place] [address] Dr [place]ak [place] Phone: tel: fax: Referral ID Status Reason Start Date Expiration Date V isits Requested Visits Authorized [id number] Closed Specialty Services Required 06/27/2024 06/27/2025 20 20 Reason for Visit * Reason Comments Annual Exam Encounter Details Date Type Department Care Team (Late st Contact Info) Description 06/23/2024 9:30 AM EST Office Visit [facility] [address] [place] [address] Zoe Plascencia FNP [address] [place] [address] Greater trochanteric pain syndrome (Primary Dx); Mild persistent asthma without complication; Allergic rhinitis, unspecified seasonality, unspecified trigger; Encounter for immunization; Dietary counseling; Exercise counseling; Class 3 severe obesity due to excess calories with serious comorbidity and body mass index (BMI) of 40.0 to 44.9 in adult ([facility]) Social History Tobacco Use Types Packs/Day Years Used Date Smoking Tobacco: Never Smokeless Tobacco: Never Tobacco Cessation:Counseling Given: Not Answered Alcohol Use Standard Drinks/Week Comments Never 0 (1 standard drink = 0.6 oz pur e alcohol) Depression Answer Date Recorded Patient Health Questionnaire-9 Score 0 06/23/2024 Patient Health Questionnaire-9 Score 0 06/23/2024 Last PHQ-9: Questionnaire Data Not on file 0 06/23/2024 Housing Stability Answer Date Recorded What is [...] Date Recorded Patient Health Questionnaire-2 Score 0 06/23/2024 Internet Access Answer Date Recorded Internet Access Q1 Yes 01/10/2024 Internet Access Q2 Not on file 01/10/2024 Comments No Sex and Gender Information Value Date Recorded Sex Assigned at Female 03/09/2022 10:14 AM EDT Legal Sex Female 10:14 AM EDT Gender Identity Female 03/09/2022 10:14 AM EDT Sexual Orientation Straight 03/09/2022 10 :14 AM EDT documented as of this encounter Last Filed Vital Signs Vital Sign Reading Time Taken Comments Blood Pressure 129/77 06/23/2024 9:48 AM EST Pulse 76 06/23/2024 9:48 AM EST Temperature 36.4 ??C (97.6 ??F) 06/23/2024 9:48 AM ES T Respiratory Rate 18 06/23/2024 9:48 AM EST Oxygen Saturation 98% 06/23/2024 9:48 AM EST Inhaled Oxygen Concentration - - Weight 84.2 kg (185 lb 9.6 oz) 06/23/2024 9:48 A M EST Height 144.8 cm (4' 9 ) 06/23/2024 9:48 AM EST Body Mass Index 40.16 06/23/2024 9:48 AM EST documented in this encounter Progress Notes * [facility], [facility] - 06/23/2024 9:30 AM EST SUBJECTIVE Tabby Solitario is a 39 y.o. year old female who presents today for transfer of care visit. Acute Concerns: Persistent right hip/knee pain. Xrays negative. Complete PT before with sx improvement Chronic Conditions: Asthma-Arnuity and albuterol PRN; currently well controlled. Requesting referral for seasonal allergy testing. Daily flonase Surgical History: None Hospitalizations: None Social History: Current living environment: Lives with 4 kids; partner, 3 dogs Children: 4 Employment/Education: Works in the kitchen at [employer] Tobacco Use: None Alcohol Use: None Marijuana Use: None Other drug use: None Reproductive Health: Sexually Active: Yes Partners are: AMAB LMP:amenorrhea d/t IUD Control: IUD, mirena Planning a in the next 12 months: No Family Medical History: Mother: Father: Siblings: No known family hx of CRC No known family hx of prostate cancer No known family hx of breast cancer Review of Systems Constitutional: Negative for fever. HENT: Negative. Respiratory: Negative for shortness of breath. Cardiovascular: Negative for chest pain. Gastrointestinal: Negative for abdominal pain. Neurological: Negative for dizziness and weakness. OBJECTIVE Vitals: 06/23/24 0948 BP: 129/77 Pulse: 76 Resp: 18 Temp: 97.6 ??F (36.4 ??C) SpO2: 98% Physical Exam Constitutional: General: She is not in acute distress. Appearance: Normal appearance. HENT: Head: Normocephalic and atraumatic. Right Ear: External ear normal. Left Ear: External ear normal. Nose: Nose normal. Eyes: Conjunctiva/sclera: Conjunctivae normal. Cardiovascular: Rate and Rhythm: Normal rate and regular rhythm. Heart sounds: Normal heart sounds. Pulmonary: Effort: Pulmonary effort is normal. Breath sounds: Normal breath sounds. Musculoskeletal: Right hip: No deformity. Normal range of motion. Normal strength. Comments: Point tenderness over greater trochanter region right hip. Strength, sensation otherwise intact throughout lower extremity. Skin: General: Skin is warm and dry. Neurological: General: No focal deficit present. Mental Status: She is alert and oriented to person, place, and time. Psychiatric: Mood and Affect: Mood normal. Behavior: Behavior normal. ASSESSMENT/PLAN Healthcare Maintenance: Mammo: Routine, negative family history Pap: 06/2023 NIL HPV neg C-scope: Routine, negative family history 1. Greater trochanteric pain syndrome (Primary) - Sx likely musculoskeletal. Non-focal, normal motor exam without neurological deficits. Consistentwith GTPS -Recommend NSAID PRN - Accepts physical therapy referral -Lifting precautions and stretching reviewed. -ER precaution discussed. -Contact HC if no sx improvement with conservative tx - Referral to Physical Therapy; Future - Referral to Physical Therapy 2. Mild persistent asthma without complication Continue daily Arnuity, albuterol as needed - Restart daily cetirizine - Restart daily Flonase - Referral to allergy per patient request for testing Seek immediate medical care if sx worsen or do not respond to treatment - Referral to Allergy; Future - Referral to Allergy 3. Allergic rhinitis, unspecified seasonality, unspecified trigger - fluticasone (Flonase) 50 MCG/ACT nasal spray; Use 1 spray each nostril daily. Shake gently. Before first use, prime pump. After use, clean tip and replace cap. Dispense: 16 g; Refill: 3 - cetirizine (ZyrTEC) 10 MG tablet; TAKE 1 TABLET BY MOUTH EVERY MORNING Dispense: 90 tablet; Refill: 0 - Referral to Allergy; Future - Referral to Allergy 4. Encounter for immunization - PCV-20 VACCINE 6 wks + 5. Dietary counseling 6. Exercise counseling 7. Class 3 severe obesity due to excess calories with serious comorbidity and body mass index (BMI)of 40.0 to 44.9 in adult ([facility]) - Encouraged regular aerobic exercise within initial goal of 30 minute walk 3x/week - Encouraged balanced diet with a variety of fruits, vegetables, and lean meats. Follow Up: 6 months, asthma follow up Current Outpatient Medications: albuterol (2.5 MG/3ML) 0.083% nebulizer solution, INHALE 1 AMPULE USING A NEBULIZER EVERY 6 HOURS NEEDED FOR WHEEZING OR SHORTNESS OF BREATH, Disp: 90 mL, Rfl: 1 albuterol (Ventolin HFA) 108 (90 Base) MCG/ACT inhaler, INHALE 2 PUFFS BY MOUTH EVERY 4 HOURS NEEDED FOR WHEEZING OR SHORTNESS OF BREATH, Disp: 18 g, Rfl: 1 Arnuity Ellipta 100 MCG/ACT inhaler, INHALE 1 PUFF BY MOUTH EVERY DAY AT THE SAME TIME, Disp: 30 each, Rfl: 2 cetirizine (ZyrTEC) 10 MG tablet, TAKE 1 TABLET BY MOUTH EVERY MORNING, Disp: 90 tablet, Rfl: 0 clotrimazole (Lotrimin) 1 % cream, APPLY TOPICALLY TO RASH TWICE DAILY IN THE MORNING AND AT BEDTIME NEEDED, Disp: 60 g, Rfl: 1 cyclobenzaprine (Flexeril) 10 MG tablet, take 1 tablet by oral route at bedtime as needed, Disp: 10tablet, Rfl: 0 Deep Sea Nasal [place] 0.65 % nasal spray, USE 1 SPRAY IN EACH NOSTRIL NEEDED FOR NASAL CONGESTION, Disp: 44 mL, Rfl: 1 fluticasone (Flonase) 50 MCG/ACT nasal spray, Use 1 spray each nostril daily. Shake gently. Before first use, prime pump. After use, clean tip and replace cap., Disp: 16 g, Rfl: 3 guaiFENesin (Mucinex) 600 MG 12 hr tablet, Take 1 tablet (600 mg) by mouth if needed in the morningand at bedtime for cough or congestion. Do not crush, chew, or split., Disp: 60 tablet, Rfl: 0 Nebulizers misc, 1 kit if needed in the morning, at noon, in the evening, and at bedtime (Shortnessof breath, cough, wheezing). Use as directed. Given in walk in center on 08/09/2023 education provided, Disp: , Rfl: pseudoephedrine ER (Sudafed-12 Hour) 120 MG 12 hr tablet, Take 1 tablet (120 mg) by mouth every 12 (twelve) hours if needed for congestion. Do not crush, chew, or split., Disp: 20 tablet, Rfl: 0 documented in this encounter Plan of Treatment Scheduled Referrals Name Type Priority Associated Diagnoses Orde r Schedule Referral to Physical Therapy Outpatient Referral Routine Greater trochanteric pain syndrome Expected: 06/23/2024 (Approximate), Expires: 06/23/2025 Referral to Allergy Outpatient Referral Routine Mild persistent asthma without complication Allergic rhinitis, unspecified seasonality, unspecified trigger Expected: 06/27/2024 (Approximate), Expires: 06/27/2025 documented as of this encounter Visit Diagnoses Diagnosis Greater trochanteric pain syndrome- Primary Mild persistent asthma without complication Allergic rhinitis, unspecified seasonality, unspecified trigger Encounter for immunization Dietary counseling Dietary surveillance and counseling Exercise counseling Class 3 severe obesity due to excess calories with serious comorbidity and body mass index (BMI) of 40.0 to 44.9 in adult (CMS/HCC) documented in this encounter Additional Health Concerns Assessment Noted Time PHQ-9 Depression Total Score: 0 06/23/19 25 9:49 AM EST documented as of this encounter Care Teams Matcher Relationship Specialty Start Date End Date Zoe Plascencia FNP [address] [place] [phone] PCP - General Family Medicine 01/11/24 documented as of this encounter
--- OUTSIDE RECORDS SUMMARY | 2024-07-11 20:21 | XMS_ITS | Encounter Summary ---
Author Organization [employer] Address [address] [facility] [address] [place] [address] Care Team Providers Care Excavator Operator Name Role Phone Destiny Byrne [facility] Primary Care Provider [phone] [facility] Primary Care Provider Reason for Visit * Reason Comments Med Refill Encounter Details Date Type Department Care Team (Late st Contact Info) Description 01/01/2023 Refill [facility] [address] [place], [place] [phone] Ronnie Odell MD [address] [place], [place] [phone] Acute non-recurrent frontal sinusitis Social History Tobacco Use Types Packs/Day Years Used Date Smoking Tobacco: Never Smokeless Tobacco: Never Alcohol Use Standard Drinks/Week Comments Never 0 (1 standard drink = 0.6 oz pur e alcohol) Depression Answer Date Recorded Patient Health Questionnaire-9 Score 0 06/26/2022 Depression Answer Date Recorded Patient Health Questionnaire-2 Score 0 06/26/2022 Comments Unknown Sex and Gender Information Value Date Recorded Sex Assigned at Female 03/09/2022 10:14 AM EDT Legal Sex Female 10:14 AM EDT Gender Identity Female 03/09/2022 10:14 AM EDT Sexual Orientation Straight 03/09/2022 10 :14 AM EDT documented as of this encounter Plan of Treatment Not on file documented as of this encounter Visit Diagnoses Diagnosis Acute non-recurrent frontal sinusitis documented in this encounter Additional Health Concerns Assessment Noted Time PHQ-9 Depression Total Score: 0 06/26/19 23 9:43 AM EST documented as of this encounter Care Teams Excavator Operator Relationship Specialty Start Date End Date Destiny Byrne FNP [address] [place] [address] PCP - General Family Medicine 05/27/22 01/10/24 [place] F[place] [address] [place] [address] PCP - General Family Medicine 01/11/24 documented as of this encounter
--- OUTSIDE RECORDS SUMMARY | 2024-07-11 20:21 | XMS_ITS | Clinical Summary ---
Author Organization [facility] Address [address] [place] [address] Care Team Providers Care Vessel Traffic Officer Name Role Phone Unavailable Primary Care Provider Unavailabl e Allergies No known active allergies Medications Medication Sig Dispensed Refills Start Date End Date Status cyclobenzaprine (FLEXERIL) 10 MG tablet Take 1 tablet (10 mg total) by mouth 2 (two) times a day as needed. 30 tablet 0 05/31/2021 Active naproxen (NAPROSYN) 500 MG tablet Take 1 tablet (500 mg total) by mouth 2 (two) times a day with meals. 30 tablet 0 05/31/2021 Active lidocaine (LIDODERM) 5 % Place 1 patch onto the skin daily. Remove & Discard patch within 12 hours or as directed by 30 patch 0 05/31/2021 Active Social History Tobacco Use Types Packs/Day Years Used Date Smoking Tobacco: Never Assessed Sex and Gender Information Value Date Recorded Sex Assigned at Female 05/30/2021 9:51 PM EST Gender Identity Not on file Sexual Orientation Not on file Job Start Date Occupation Industry Not on file Not on file Not on file Last Filed Vital Signs Vital Sign Reading Time Taken Comments Blood Pressure 120/79 05/31/2021 12:46 AM EST Pulse 77 05/31/2021 12:46 AM EST Temperature 36.5 ??C (97.7 ??F) 05/31/2021 12:[address] Respiratory Rate 16 05/31/2021 12:46 AM EST Oxygen Saturation 100% 05/31/2021 12:46 AM EST Inhaled Oxygen Concentration - - Weight 62.6 kg (138 lb) 05/30/2021 9:41 PM EST Height - - Body Mass Index - - Plan of Treatment Not on file
--- OUTSIDE RECORDS SUMMARY | 2024-07-11 20:21 | XMS_ITS | Encounter Summary ---
Author Organization [employer] Address [address] [facility] 7t [place] [address] Care Team Providers Care Cda Teacher Name Role Phone Destiny Byrne [facility] Primary Care Provider [facility] Primary Care Provider [phone] Reason for Visit * Reason Onset Date Comments PAP 06/02/23 06/02/2023 Encounter Details Date Type Department Care Team ([facility] st Contact Info) Description 06/02/2023 Telephone [facility] [address] [place], [place] [phone] Destiny Byrne FNP [address], [place] [phone] PAP 06/02/23 Social History Tobacco Use Types Packs/Day Years Used Date Smoking Tobacco: Never Smokeless Tobacco: Never Alcohol Use Standard Drinks/Week Comments Never 0 (1 standard drink = 0.6 oz pur e alcohol) Depression Answer Date Recorded Patient Health Questionnaire-9 Score 0 06/26/2022 Housing Stability Answer Date Recorded What is your housing situation today? I have yelena diaz 03/09/[address] you li ve. Do you have problems with any of the following? None of the above 03/09/2023 Food Insecurity Answer Date Recorded Within the past 12 months, y ou worried that your food would run out before you got money to buy more: Never True 03/09/2023 Within the past 12 months,th e food you bought just didn't last and you didn't have enough money to get more: Never True Transportation Answer Date Recorded In the past 12 months, has l ack of transportation kept you from medical appts, meetings, work or from getting things needed for daily living? No 03/09/2023 Utilities Answer Date Recorded In the past 12 months, has t he electric, gas, oil or water company threatened to shut off services in your home? No 03/09/2023 Depression Answer Date Recorded Patient Health Questionnaire-2 Score 0 05/07/2023 Comments No Sex and Gender Information Value Date Recorded Sex Assigned at Female 03/09/2022 10:14 AM EDT Legal Sex Female 10:14 AM EDT Gender Identity Female 03/09/2022 10:14 AM EDT Sexual Orientation Straight 03/09/2022 10 :14 AM EDT documented as of this encounter Miscellaneous Notes * Telephone Encounter - Quinton Nevarez - 06/02/2023 10:13 AM EST Tc from pt called to cancel pap smear 06/02/23. Rescheduled for 07/08/23 documented in this encounter Plan of Treatment Not on file documented as of this encounter Visit Diagnoses Not on filedocumented in this encounter Additional Health Concerns Assessment Noted Time PHQ-9 Depression Total Score: 0 06/26/19 23 9:43 AM EST documented as of this encounter Care Teams Cda Teacher Relationship Specialty Start Date End Date Destiny Byrne FNP [address] [place] [address] PCP - General Family Medicine 05/27/22 01/10/24 [facility] SYLWIA Enriquez [address] [place] [address] PCP - General Family Medicine 01/11/24 documented as of this encounter
--- OUTSIDE RECORDS SUMMARY | 2024-07-11 20:21 | XMS_ITS | Encounter Summary ---
Author Organization [employer] Address [address] 7[address] [place] [address] Care Team Providers Care Communications Electrician Supervisor Name Role Phone Thais [facility] Primary Care Provider [phone] Encounter Details Date Type Department Care Team (Late st Contact Info) Description 06/14/2024 10:20 AM EST Office Visit [facility] [address] [place], [place] [phone] Pillo Gutierrez MD [address] [place], [place] [phone] Mild intermittent asthma with acute exacerbation (Primary Dx); Acute cough Social History Tobacco Use Types Packs/Day Years [...] Sign Reading Time Taken Comments Blood Pressure 115/73 06/14/2024 9:42 AM EST Pulse 97 06/14/2024 9:42 AM EST Temperature 36.6 ??C (97.8 ??F) 06/14/2024 9:42 AM ES T Respiratory Rate - - Oxygen Saturation 99% 06/14/2024 9:42 AM EST room air Inhaled Oxygen Concentration - - Weight 84.5 kg (186 lb 3.2 oz) 06/14/2024 9:42 A M EST Height - - Body Mass Index 40.29 07/08/2023 10:50 AM EST documented in this encounter Progress Notes * Pillo Gutierrez MD - 06/14/2024 10:20 AM EST Subjective Patient ID: Tabby Solitario is a 39 y.o. female. KLAUDIA Mcnair states that she was seen in [facility] ED 2 days ago for asthma sx. States that blood tests, covid and flu tests, and CXR were done, told that they were all neg. Given nebs, 1 dose of prednisone. Did not receive any prescriptions. No ED notes are available at this time. She came to [facility] today because of nasal congestion, SOB, wheezing, coughing. Using albuterol neb q4h, Arnuity Ellipta every day. No fever, n/v/d. Lives with and 3 children. 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 LMP=irreg due to Mirena IUD. Never smoked. Patient Active Problem List Diagnosis Allergic rhinitis Class 2 obesity Mild intermittent asthma Thigh pain, musculoskeletal, right Hoarseness or changing voice Trochanteric bursitis of right hip The following portions of the chart were reviewed this encounter and updated as appropriate: Review of Systems Constitutional: Negative for fever. Respiratory: Positive for cough, shortness of breath and wheezing. Cardiovascular: Negative for chest pain. Gastrointestinal: Negative for abdominal pain. Skin: Negative for rash. Neurological: Negative for headaches. Objective Physical Exam Constitutional: Appearance: Normal appearance. HENT: Right Ear: Tympanic membrane, ear canal and external ear normal. Left Ear: Tympanic membrane, ear canal and external ear normal. Nose: Nose normal. Mouth/Throat: Mouth: Mucous membranes are moist. Pharynx: Oropharynx is clear. Eyes: Conjunctiva/sclera: Conjunctivae normal. Pupils: Pupils are equal, round, and reactive to light. Cardiovascular: Rate and Rhythm: Normal rate and regular rhythm. Heart sounds: No murmur heard. Pulmonary: Effort: Pulmonary effort is normal. Breath sounds: Wheezing (mild bilat expiratory) present. Musculoskeletal: General: Normal range of motion. Cervical back: No tenderness. Skin: Findings: No rash. Neurological: Mental Status: She is alert. Gait: Gait is intact. Psychiatric: Mood and Affect: Mood normal. Behavior: Behavior normal. Procedures Assessment/Plan Diagnoses and all orders for this visit: Mild intermittent asthma with acute exacerbation Negative rapid Covid and Influenza tests. Covid PCR and Flu tests pending. Given albuterol neb in [facility] with improvement. Continue albuterol, Arnuity Ellipta. Prescribed prednisone. Rtc if not improving. - albuterol (2.5 MG/3ML) 0.083% nebulizer solution 2.5 mg - POCT Rapid Covid-19 BinaxNOW - POCT Rapid Influenza A BRITT ID NOW - POCT Rapid Influenza A OSOM Acute cough - POCT Rapid Covid-19 BinaxNOW - POCT Rapid Influenza A BRITT ID NOW - POCT Rapid Influenza A OSOM Other orders - predniSONE (Deltasone) 20 MG tablet; Take 2 tablets (40 mg) by mouth Once per day for 5 days. * Frances Henderson RN - 06/14/2024 10:20 AM EST Patient presents to walk in center with a complaint of shortness of breath and brought back to be triaged, Os sat 99 on room air. Patient reports dry cough since last week was seen in ED on Wednesday for same symptoms. Also reports congestion, headache will swab for covid and flu, pt to be evaluated by provider. Patient reports she used her nebulizer at 6 am this morning wheezing noted on inspiration right and left side documented in this encounter Plan of Treatment Not on file documented as of this encounter Procedures Procedure Name Priority Date/Time Associated Diagnosis Comments POCT INFLUENZA A (ID NOW RAPID MOLECULAR) Routine 06/14/2024 10:06 AM EST Mild intermittent asthma with acute exacerbation Acute cough POCT RAPID COVID ANTIGEN Routine 06/14/2024 10:06 AM EST Mild intermittent asthma with acute exacerbation Acute cough POCT INFLUENZA A Routine 06/14/2024 10:0 6 AM EST Mild intermittent asthma with acute exacerbation Acute cough documented in this encounter Results * POCT Rapid Influenza A OSOM (06/14/2024 10:06 AM EST) Rapid Influenza A Ag Negative Negative, Indeterminate Swab Nasopharyngeal structure / Unknown 06/14/2024 10:06 AM EST us Pillo Gutierrez MD POINT OF CARE TEST ENTER/EDIT OR DERABLES Final Result * POCT Rapid Influenza A BRITT ID NOW (06/14/2024 10:06 AM EST) Influenza A Negative Negative, Indeterminate [facility] Swab 06/14/2024 10:0 6 AM EST us Pillo Gutierrez MD POINT OF CARE TEST ENTER/EDIT OR DERABLES Final Result [facility] [address] [place] [phone] * POCT Rapid Covid-19 BinaxNOW (06/14/2024 10:06 AM EST) Rapid COVID Ag Negative [facility] Nares 06/14/2024 10:0 6 AM EST Pillo Gutierrez MD POINT OF CARE TEST ENTER/EDIT OR DERABLES Final Result [facility] [address] [place] [phone] documented in this encounter Visit Diagnoses Diagnosis Mild intermittent asthma with acute exacerbation- Primary Acute cough documented in this encounter Administered Medications Inactive Administered Medications - up to 3 most recent administrations Medication Order MAR Action Action Date Dose Rate Site albuterol (2.5 MG/3ML) 0.083% nebulizer solution 2.5 mg 2.5 mg, Nebulization, Once, On Wed06/14/24 at 1000, For 1 doseIndications:Mild intermittent asthma with acute exacerbation Given 06/14/2024 10:00 AM EST 2.5 mg documented in this encounter Additional Health Concerns Assessment Noted Time PHQ-9 Depression Total Score: 0 06/26/19 23 9:43 AM EST documented as of this encounter Care Teams Communications Electrician Supervisor Relationship Specialty Start Date End Date Zoe Plascencia FNP [address] [place] [id number] PCP - General Family Medicine 01/11/24 documented as of this encounter
--- OUTSIDE RECORDS SUMMARY | 2024-07-11 20:21 | XMS_ITS | Encounter Summary ---
Author Organization [employer] Address [address] [facility] 7t [place] [address] Care Team Providers Care Physician Specialist Name Role Phone [place] [facility] Primary Care Provider [phone] Reason for Visit * Reason Comments Care Coordination CM/CHW outreach Encounter Details Date Type Department Care Team (Latest Contact Info) Description 06/15/2024 Patient Outreach [facility] [address], [place] [phone] [facility] [address] [place] [address] Care Coordination (CM/CHW outreach) Social History Tobacco [...] encounter Progress Notes * Dione Nevarez - 06/15/2024 9:08 AM EST CHW Dione Nevarez, placed outbound call to patient in regards to help with SDOH services and to introduce Adult Complex Care Program CHW LVM introducing herself from [facility] CM Department with CHW's name, department and direct contact number requesting call back. Will re-attempt to contact within 5 days. and address not confirmed. documented in this encounter Plan of Treatment Not on file documented as of this encounter Visit Diagnoses Not on filedocumented in this encounter Additional Health Concerns Assessment Noted Time PHQ-9 Depression Total Score: 0 06/26/19 23 9:43 AM EST documented as of this encounter Care Teams Physician Specialist Relationship Specialty Start Date End Date Zoe Plascencia FNP [address] [place] [phone] PCP - General Family Medicine 01/11/24 documented as of this encounter
--- OUTSIDE RECORDS SUMMARY | 2024-07-11 20:21 | XMS_ITS | Encounter Summary ---
Author Organization [employer] Address [address] [facility] 7t [place] [address] Care Team Providers Care Tray Worker Name Role Phone Destiny Byrne [facility] Primary Care Provider [phone] [facility] Primary Care Provider [phone] Reason for Visit * Reason Onset Date Comments Results 11/12/2022 Encounter Details Date Type Department Care Team ([facility] st Contact Info) Description 11/12/2022 Telephone [facility] MED[facility]INE [address] [place], [place] [phone] Destiny Byrne FNP [address] [place], [place] [phone] Results Social History Tobacco Use Types Packs/Day Years [...] Orientation Straight 03/09/2022 10 :14 AM EDT COVID-19 Exposure Response Date Recorded In the last 10 days, have yo u been in contact with someone who was confirmed or suspected to have Coronavirus/COVID-19? No / Unsure 11/06/2022 9:49 AM EDT documented as of this encounter Miscellaneous Notes * Telephone Encounter - Ansha Siawor, RN - 11/12/2022 11:43 AM EDT T/C returned to patient regarding urine result. Patient was informed that u/a was negative for bacteria. However, patient raised concern about the blood in the urine. Patient stated that she is no longer experiencing dysuria since she took the antibiotic. She also stated the she has in an IUD and spot blood but infrequently. Patient advised that this message will be sent to provider and she will receive a phone call if there is any concerns about the blood in urine that was resulted on 11/06/2022. In addition, patient was also advised to follow-up with OBGYN with concerns related to IUD and bleeding. * Telephone Encounter - Chantal Lopez - 11/12/2022 9:08 AM EDT Tc from pt requesting a call in regards to labs done on 11/06. Please contact pt at [phone] documented in this encounter Plan of Treatment Not on file documented as of this encounter Visit Diagnoses Not on filedocumented in this encounter Additional Health Concerns Assessment Noted Time PHQ-9 Depression Total Score: 0 06/26/19 9:43 AM EST documented as of this encounter Care Teams Tray Worker Relationship Specialty Start Date End Date Destiny Byrne FNP [address] [place] [address] PCP - General Family Medicine 05/27/22 01/10/24 [place] FNP [address] [place] [address] PCP - General Family Medicine 01/11/24 documented as of this encounter
--- OUTSIDE RECORDS SUMMARY | 2024-07-11 20:21 | XMS_ITS | Encounter Summary ---
Author Organization [employer] Address [address] [place] [address] Care Team Providers Care Chemistry Lecturer Name Role Phone [facility] [facility] Primary Care Provider [phone] Encounter Details Date Type Department Care Team (Latest Contact Info) Description 06/23/2024 Travel Social History Tobacco Use Types Packs/Day Years [...] documented as of this encounter Care Teams Chemistry Lecturer Relationship Specialty Start Date End Date Zoe Plascencia FNP [address] [place] [phone] PCP - General Family Medicine 01/11/24 documented as of this encounter
--- OUTSIDE RECORDS SUMMARY | 2024-07-11 20:21 | XMS_ITS | Clinical Summary ---
Author Organization [facility] Address [address] [place] [address] Care Team Providers Care City Director Name Role Phone Unavailable Primary Care Provider Unavailabl e Surgical History Surgery Date Site/Laterality Comments OTHER SURGICAL HISTORY PROCEDURE: DENIES PREVIOUS SURGERY Medical History Medical History Date Comments Asthma DX:Asthma Abnormal cytological finding in specimen from cervix DX:Abnormal cytological find ing in specimen from cervix Family History Medical History Relation Name Comments Hypertension Father Hypertension Mother Breast cancer Neg Hx Colon cancer Neg Hx Ovarian cancer Neg Hx Prostate cancer Neg Hx Relation Name Status Comments Father Mother Social History Tobacco Use Types Packs/Day Years Used Date Smoking Tobacco: Never Smokeless Tobacco: Never Alcohol Use Standard Drinks/Week Comments No 0 (1 standard drink = 0.6 oz pur e alcohol) Comments Unknown Sex and Gender Information Value Date Recorded Sex Assigned at Not on file Legal Sex Female 3:33 PM EST Gender Identity Not on file Sexual Orientation Not on file Obstetrics History Plan of Treatment Health Maintenance Due Date Last Done Comments COVID-19 Vaccine ( season) 2024 05/28/2023, 07/22/2021, 11/01/2020, Additional history exists Influenza Vaccine (#1) 2024 3, 04/26/2019, 07/07/2018, Additional history exists Cervical Cancer Screening: Pap Smear 07/07/2026 07/08/2023 DTaP,Tdap,and Td Vaccines (11 - Td or Tdap) 01/06/2031 01/06/2021, 11/20/2020, 01/05/2019, Additional history exists IPV Vaccines Completed 07/09/1987, 07/1986, 1986, Additional history exists Hepatitis B Vaccines Completed 07/08/1998, 04/15/1998, 03/11/1998 HPV Vaccines Completed 05/23/2007, 12/08, 10/25/2006 MMR Vaccines Completed 10/23/2015, 11/08, 07/09/1987 Pneumococcal Vaccine: Pediatrics (0 to 5 Years) and At-Risk Patients (6 to 64 Years) Aged Out 01/17/2019 No longer eligible based on patient's age to complete this topic HIB Vaccines Aged Out No longer eligi ble based on patient's age to complete this topic Hepatitis A Vaccines Aged Out No long er eligible based on patient's age to complete this topic Meningococcal ACWY Vaccine Aged Out N o longer eligible based on patient's age to complete this topic Meningococcal B Vacine Aged Out No lo nger eligible based on patient's age to complete this topic RSV Immunization Patients Under 20 months Aged Out No longer eligible based on patient's age to complete this topic Varicella Vaccines Aged Out No longer eligible based on patient's age to complete this topic
--- OUTSIDE RECORDS SUMMARY | 2024-07-11 20:21 | XMS_ITS | Encounter Summary ---
Author Organization [employer] Address [address] [facility] 7t [place] [address] Care Team Providers Care Wellness Trainer Name Role Phone Destiny Byrne [facility] Primary Care Provider [phone] [facility] Primary Care Provider [phone] Reason for Visit * Reason Onset Date Comments Televisit 12/14/2023 Encounter Details Date Type Department Care Team (Late st Contact Info) Description 12/14/2023 Telephone [facility] [address] [place], [place] [phone] Destiyn Byrne FNP [address] [place], [place] [phone] Televisit Social History Tobacco Use Types Packs/Day Years [...] * Telephone Encounter - Quinton Nevarez - 12/14/2023 11:50 AM EDT Tc from pt calling in regards to Telephone visit for 11:30 has not received a call. documented in this encounter Plan of Treatment Not on file documented as of this encounter Visit Diagnoses Not on filedocumented in this encounter Additional Health Concerns Assessment Noted Time PHQ-9 Depression Total Score: 0 06/26/19 23 9:43 AM EST documented as of this encounter Care Teams Wellness Trainer Relationship Specialty Start Date End Date Destiny Byrne FNP [address] [place] [address] PCP - General Family Medicine 05/27/22 01/10/24 BurtonZoe FNP [address] [place] [address] PCP - General Family Medicine 01/11/24 documented as of this encounter
--- OUTSIDE RECORDS SUMMARY | 2024-07-11 20:21 | XMS_ITS | Encounter Summary ---
Author Organization [employer] Address [address] [facility] 7t [place] [address] Care Team Providers Care Bar Finish Operator Name Role Phone Destiny Byrne [facility] Primary Care Provider [phone] [facility] Primary Care Provider Reason for Visit * Reason Onset Date Comments Appointment Request 11/23/2023 Encounter Details Date Type Department Care Team ([facility] st Contact Info) Description 11/23/2023 Telephone [facility] [address] [place], [place] [phone] Destiny Byrne FNP [address] [place], [place] [phone] Appointment Request Social History Tobacco Use Types Packs/Day Years [...] encounter Miscellaneous Notes * Telephone Encounter - Anabell Del Castillo - 11/23/2023 10:10 AM EDT Tc from pt requesting to r/s appt for F/U for Follow up with PCP f/u asthma. On 11/22/23 documented in this encounter Plan of Treatment Not on file documented as of this encounter Visit Diagnoses Not on filedocumented in this encounter Additional Health Concerns Assessment Noted Time PHQ-9 Depression Total Score: 0 06/26/19 23 9:43 AM EST documented as of this encounter Care Teams Bar Finish Operator Relationship Specialty Start Date End Date Destiny Byrne FNP [address] [place] [address] PCP - General Family Medicine 05/27/22 [facility] [address] [place] [address] PCP - General Family Medicine 01/11/24 documented as of this encounter
--- OUTSIDE RECORDS SUMMARY | 2024-07-11 20:22 | XMS_ITS | Clinical Summary ---
Author Organization [employer] Address [address] [facility] [address] [place] [address] Care Team Providers Care Side Boss Name Role Phone Thais [facility] Primary Care Provider [phone] Allergies No known active allergies Medications albuterol (2.5 MG/3ML) 0.083% nebulizer solutionIndicat ions:Moderate persistent asthma with acute exacerbation INHALE 1 AMPULE USING A NEBULIZER EVERY 6 HOURS NEEDED FOR WHEEZING OR SHORTNESS OF BREATH 90 mL 1 10/09/19 23 Active cyclobenzaprine (Flexeril) 10 MG tabletIndicatio ns:Thigh pain, musculoskeletal , right take 1 tablet by oral route at bedtime as needed 10 tablet 05/07/20 23 Active Arnuity Ellipta 100 MCG/ACT inhalerIndicati ons:Mild asthma exacerbation INHALE 1 PUFF BY MOUTH EVERY DAY AT THE SAME TIME 30 each 2 06/23/19 24 Active Nebulizers misc 1 kit if needed in the morning, at noon, in the evening, and at bedtime (Shortness of breath, cough, wheezing). Use as directed. Given in walk in center on 08/09/2023 education provided Active Deep Sea Nasal [place] 0.65 % nasal spray USE 1 SPRAY IN EACH NOSTRIL NEEDED FOR NASAL CONGESTION 44 mL 1 12/15/19 24 Active albuterol (Ventolin HFA) 108 (90 Base) MCG/ACT inhalerIndicati ons:Mild asthma exacerbation,Mo derate persistent asthma with acute exacerbation INHALE 2 PUFFS BY MOUTH EVERY 4 HOURS NEEDED FOR WHEEZING OR SHORTNESS OF BREATH 18 g 1 03/22/20 24 Active fluticasone (Flonase) 50 MCG/ACT nasal sprayIndication s:Allergic rhinitis, unspecified seasonality, unspecified trigger Use 1 spray each nostril daily. Shake gently. Before first use, prime pump. After use, clean tip and replace cap. 16 g 3 06/23/19 25 Active cetirizine (ZyrTEC) 10 MG tabletIndicatio ns:Allergic rhinitis, unspecified seasonality, unspecified trigger TAKE 1 TABLET BY MOUTH EVERY MORNING 90 tablet 06/23/19 25 Active clotrimazole (Lotrimin) 1 % cream Apply topically 2 times daily. Use for 14 days. If improved but not fully gone, continue for a total of 28 days. 60 g 1 07/12/19 25 Active clotrimazole (Lotrimin) 1 % cream APPLY TOPICALLY TO RASH TWICE DAILY IN THE MORNING AND AT BEDTIME NEEDED 60 g 1 10/29/19 23 025 Discontinued(R eorder (will not trigger notification to Pharmacy)) fluticasone (Flonase) 50 MCG/ACT nasal sprayIndication s:Acute non-recurrent frontal sinusitis Use 1 spray each nostril daily. Shake gently. Before first use, prime pump. After use, clean tip and replace cap. 16 g 3 12/14/19 24 025 Discontinued(R eorder (will not trigger notification to Pharmacy)) guaiFENesin (Mucinex) 600 MG 12 hr tablet Take 1 tablet (600 mg) by mouth if needed in the morning and at bedtime for cough or congestion. Do not crush, chew, or split. 60 tablet 12/14/19 24 025 Discontinued pseudoephedrine ER (Sudafed-12 Hour) 120 MG 12 hr tablet Take 1 tablet (120 mg) by mouth every 12 (twelve) hours if needed for congestion. Do not crush, chew, or split. 20 tablet 12/14/19 24 025 Discontinued cetirizine (ZyrTEC) 10 MG tabletIndicatio ns:Allergic rhinitis, unspecified seasonality, unspecified trigger TAKE 1 TABLET BY MOUTH EVERY MORNING 90 tablet 05/11/19 25 025 Discontinued(R eorder (will not trigger notification to Pharmacy)) predniSONE (Deltasone) 20 MG tablet Take 2 tablets (40 mg) by mouth Once per day for 5 days. 10 tablet 06/14/19 25 025 Hospital, Clinic, or Other Facility Administered Medication Ordered Dose Route Frequency Start Date End Date Status albuterol (2.5 MG/3ML) 0.083% nebulizer solution 2.5 mgIndications:Mild intermittent asthma with acute exacerbation 2.5 mg NEBULIZATION Once 06/14/2024 06/14/2024 Ended Active Problems Problem Noted Date Diagnosed Date Trochanteric bursitis of right hip 04/16/2023 Assessment & Plan (04/16/2023 11:53 AM EST): Recommended heat to effected area, use tylenol and ibuprofen x 1 wk Refer to PT, decrease lifting and hip movements for 1-2 days, she will be out of work until next wk. FU w/ PCP Hoarseness or changing voice 07/30/2022 Thigh pain, musculoskeletal, right 06/26/2022 Class 2 obesity 05/21/2022 Allergic rhinitis 06/25/2016 Mild intermittent asthma 06/25/2016 Resolved Problems Problem Noted Date Diagnosed Date Resolved Date Flu 05/18/2023 12/14/2023 Assessment & Plan (05/18/2023 5:25 PM EST): Pt w respiratory symptoms w asthma exacerbation Here + for flu infection ,neg for COVID and strep Pt on day 6 of symptoms so out of window for tx -for now hydration -supportive tx w tylenol , NSAIDs prn -prednisone for 5 days,dextromethorphane and ocean nsal spray -rest for next 72 h -work letter gave to pt -alarm signs and symptoms discussed Acute URI 03/25/2023 12/14/2023 Mild asthma exacerbation 03/25/202310/2023 Overview (03/25/2023): -Frazee of prednisone 40mg for 5 days given 03/25/2023. -Flovent and albuterol script sent 03/25/2023 Assessment & Plan (03/25/2023 10:06 AM EST): -Frazee of prednisone 40mg for 5 days given 03/25/2023. -Flovent and albuterol script sent 03/25/2023 Allergic conjunctivitis of right eye 09/22/2022 12/14/2023 Overview (09/22/2022): No evidence of infection. -Allergy eye drops given. -Recomend small amount of vaseline to dry lid before bed. Assessment & Plan (09/22/2022 10:43 AM EDT): No evidence of infection. -Allergy eye drops given. -Recomend small amount of vaseline to dry lid before bed. Acute cough 08/14/2022 09/03/2022 Assessment & Plan (08/14/2022 5:56 PM EDT): Still has a bit of a cough at night. She would like something to help her sleep at night. Educated patient to return in 2-4 weeks if cough does not clear up. Advised of ER precautions. Hospital discharge follow-up 08/13/2022 09/03/2022 Assessment & Plan (08/13/2022 4:23 PM EDT): ER visit 08/01 HPI Narrative: Patient complains of 1 week of cough runny nose congestion, cough is worsening, over last 2 days cough is increased in frequency with yellow sputum, no shortness of breath no chest pain no dizziness no weakness no fainting no feeling faint no headache no stiff neck no abdominal pain no nausea vomiting or diarrhea no sore throat no difficulty swallowing no dysuria no skin rash Course Narrative: Chest x-ray was normal, COVID and flu tests were negative We are treating for bronchitis with doxycycline antibiotic Encounters Date Type Department Care Team Description 07/11/2024 11:00 AM EST Office Visit [address] [address] Davonte Cuellar CNM Checking of intrauterine device (Primary Dx); Vaginal discharge; Tinea 07/11/2024 Travel 07/05/[address] [address] Zoe Plascencia FNP Care Management (C3CM- initial assessment/ enrollment) 07/04/2024 Patient Outreach [address] [place] [address] Zoe Plascencia FNP Care Coordination (CM/CHW outreach) 06/23/2024 9:30 AM EST Office Visit [facility] [place] [address] Zoe Plascencia FNP Greater trochanteric pain syndrome (Primary Dx); Mild persistent asthma without complication; Allergic rhinitis, unspecified seasonality, unspecified trigger; Encounter for immunization; Dietary counseling; Exercise counseling; Class 3 severe obesity due to excess calories with serious comorbidity and body mass index (BMI) of 40.0 to 44.9 in adult ([facility]) 06/23/2024 Travel 06/20/2024 Patient Outreach [facility] [facility] [place] [address] Zoe Plascencia FNP Care Coordination (CM/CHW outreach) 06/15/2024 Patient Outreach [address] [place] [address] Zoe Plascencia FNP Care Coordination (CM/CHW outreach) 06/14/2024 10:20 AM EST Office Visit [facility] [facility] [place] [address] Pillo Gutierrez MD Mild intermittent asthma with acute exacerbation (Primary Dx); Acute cough 06/14/2024 Travel 06/13/[address] [address] Jaquelin Lopez RN Care Management (C3CM- chart review) 06/12/2024 Patient Outreach [address] [address] Zoe Plascencia FNP Pre-visit Planning ((Unable to reach for PVP screening or LVM)) 05/19/[address] [address] Zoe Plascencia FNP Nurse Triage 05/11/[address] [address] Zoe Plascencia FNP Allergic rhinitis, unspecified seasonality, unspecified trigger 05/08/2024 Travel 05/05/[address] [address] Scarlet Knutson, RYNE NTTS F/U from Last 3 Months Immunizations Name Administration Dates Next Due DTP 1985,1986,1986 DTaP 04/11/1990,07/09/1987 HPV, Quadrivalent 05/23/2007,12/23/2006,10/26/19 07 Hep B, Adolescent or Pediatric 07/08/1998,1997,03/11/1998 Hep B, adult 12/01/2023 Influenza injectable quadriv alent IIV4 with preservative 03/26/2015 Influenza injectable quadriv alent preservative free 05/07/2023,04/26/2019,07/07/2018 Influenza, IIV3, injectable 05/13/2010 Influenza, Split (incl. anahy fied surface antigen) 08/08/2013 Influenza, seasonal, injecta ble, preservative free 06/23/2024 MMR 10/23/2015,11/26/1994,07/09/1987 OPV 07/09/1987, 7,1986,06/11 Pfizer Covid-19 Vaccine 12+ 06/23/2024,0 05/28/2023,07/22/2021,11/01,10/11/2020 Pfizer Covid-19 Vaccine 12+ jian-sucrose (Quintana Cap) 07/22/2021 Pneumococcal Conjugate PCV 20 06/23/2024 Pneumococcal Polysaccharide PPSV23 01/17/2019 TD (adult), 2 Lf tetanus tox oid, preservative free, adsorbed 01/27/1999 Tdap 01/06/2021,,01/05/2019,08/18,09/30/2010 Family History Medical History Relation Name Comments Asthma Mother Olivia Cordova Hypertension Mother Olivia Cordova Asthma Sister 1 Davonte Solitario Asthma Sister 2 Mod[place] Singh Relation Name Status Comments Mother Olivia Rivasa Sister 1 Davonte Solitario Sister 2 Stephy Singh Social History Tobacco Use Types Packs/Day Years [...] Orientation Straight 03/09/2022 10 :14 AM EDT Last Filed Vital Signs Vital Sign Reading Time Taken Comments Blood Pressure 106/65 07/11/2024 11:01 AM EST Pulse 78 07/11/2024 11:01 AM EST Temperature 36.4 ??C (97.6 ??F) 07/11/2024 11:[address] Respiratory Rate 18 07/11/2024 11:01 AM EST Oxygen Saturation 98% 07/11/2024 11:01 AM EST Inhaled Oxygen Concentration - - Weight 84.4 kg (186 lb) 07/11/2024 11:01 AM EST Height 144.8 cm (4' 9 ) 07/11/2024 11:01 AM EST Body Mass Index 40.25 07/11/2024 11:01 AM EST Plan of Treatment Health Maintenance Due Date Last Done Comments SDOH Screening 12/13/2024 12/14/2023 Alcohol/Substance Use Screening 06/23/2025 06/23/2024 Depression Screening 06/23/2025 06/23/2024, 06/23/19 Family Planning (PISQ) 07/11/2025 07/11/2024 Tobacco Screening 07/11/2025 07/11/2024 Lipid Panel 05/07/2028 05/07/2023, 07/22/2021 Cervical Cancer Screening 07/07/2028 HPV/Cotest 07/07/2028 07/08/2023 Pap Smear 07/07/2028 07/08/2023 DTaP/Tdap/Td Vaccines (11 - Td or Tdap) 01/06/2031 01/06/2021, 11/20/2020, 01/05/2019, Additional history exists Zoster Vaccines (1 of 2) 2036 RSV Patients and Patients Aged 60 years or older (1 - 1-dose 75+ series) 2061 IPV Vaccines Completed 07/09/1987, 07/1986, 1986, Additional history exists HPV Vaccines Completed 05/23/2007, 12/08, 10/25/2006 HIV Screening Completed 07/29/2020 Hepatitis C Screening Completed 07/29/2020 Hepatitis B Vaccines Completed 12/01/2023, 07/08/1998, 04/15/1998, Additional history exists COVID-19 Vaccine Completed 06/23/2024, , 07/22/2021, Additional history exists Influenza Vaccine Completed 06/23/2024, , 04/26/2019, Additional history exists Pneumococcal Vaccine: Pediatrics (0 to 5 Years) and At-Risk Patients (6 to 49) Years) Completed 06/23/2024, 01/17/2019 HIB Vaccines Aged Out No longer eligi ble based on patient's age to complete this topic Hepatitis A Vaccines Aged Out No long er eligible based on patient's age to complete this topic Meningococcal Vaccine Aged Out No tj jeanine eligible based on patient's age to complete this topic RSV under 20 months Aged Out No longe r eligible based on patient's age to complete this topic Rotavirus Vaccines Aged Out No longer eligible based on patient's age to complete this topic Procedures Procedure Name Priority Date/Time Associated Diagnosis Comments POCT INFLUENZA A Routine 06/14/2024 10:0 6 AM EST Mild intermittent asthma with acute exacerbation Acute cough POCT INFLUENZA A (ID NOW RAPID MOLECULAR) Routine 06/14/2024 10:06 AM EST Mild intermittent asthma with acute exacerbation Acute cough POCT RAPID COVID ANTIGEN Routine 06/14/2024 10:06 AM EST Mild intermittent asthma with acute exacerbation Acute cough COMPREHENSIVE METABOLIC PANEL Routine 05/05/2024 2:41 AM EST CBC WITH AUTO DIFFERENTIAL Routine 05/05/2024 2:41 AM EST HPV MRNA E6/E7 REFLEX TO HPV 16, 18/45 Routine 07/08/2023 11:07 AM EST PAP SMEAR Routine 07/08/2023 11:07 AM EST Cervical cancer screening LIPID PANEL, STANDARD Routine 05/07/2023 11:21 AM EST Adult BMI 38.0-38.9 kg/sq m ZZZ HISTORICAL HIV AB/AG Routine 07/29/2020 10:52 AM EDT from Last 3 Months or Most Recently Relevant to Health Maintenance Results * POCT Rapid Influenza A BRITT ID NOW (06/14/2024 10:06 AM EST) Influenza A Negative Negative, Indeterminate [facility] Swab 06/14/2024 10:0 6 AM EST Pillo Gutierrez MD POINT OF CARE TEST ENTER/EDIT OR DERABLES Final Result [facility] [address] [place] [phone] * POCT Rapid Covid-19 BinaxNOW (06/14/2024 10:06 AM EST) [facility] Rapid COVID Ag Negative [facility] Nares 06/14/2024 10:0 6 AM EST us Pillo Gutierrez MD POINT OF CARE TEST ENTER/EDIT OR DERABLES Final Result [facility] [address] [place] [address] [phone] * POCT Rapid Influenza A OSOM (06/14/2024 10:06 AM EST) [facility] Influenza A Ag Negative Negative, Indeterminate Swab Nasopharyngeal structure / Unknown 06/14/2024 10:06 AM EST us Pillo Gutierrez MD POINT OF CARE TEST ENTER/EDIT OR DERABLES Final Result * (ABNORMAL) CBC auto differential (05/05/2024 2:41 AM EST) [facility] White Blood Count 14.9(H) 4.8 - 10.8 X10*3/uL [facility] Red Blood Count 4.73 4.20 - 5.50 X10*6/uL [facility] Hemoglobin 14.5 12.0 - 16.0 g/dl [facility] Hematocrit 41.5 37.0 - 47.0 % [facility] Mean Corpuscular Volume 87.7 80.0 - 98.0 fL [facility] Mean Corpuscular Hemoglobin 30.7 27.0 - 33.0 pg [facility] Mean Corpuscular HGB Conc 34.9 31.0 - 35.0 g/dl [facility] Red Cell Distribution Width 12.6 11.0 - 16.0 % [facility] Platelet Count 294 160 - 400 X10*3/uL [facility] Mean Platelet Volume 10.8 9.4 - 12.3 fL [facility] Neutrophils Percent Auto 88.9(H) 45 - 73 % [facility] Imm Gran Pct Auto 0.3 0.0 - 0.4 % [facility] Lymphocytes Percent Auto 4.3(L) 20 - 40 % [facility] Monocytes Percent Auto 4.3 2 - 11 % [facility] Eosinophils Percent Auto 2.0 0 - 4 % [facility] Basophils Percent Auto 0.2 0 - 2 % [facility] NRBC Pct Auto 0.0 0.0 - 0.2 /100WBC [facility] Neutrophils Absolute Auto 13.3(H) 2.0 - 8.3 x10*3/uL [facility] Imm Gran Abs Auto 0.04(H) 0.00 - 0.03 X10*3/uL [facility] Lymphocytes Absolute Auto 0.6(L) 1.2 - 4.9 X10*3/uL [facility] Monocytes Absolute Auto 0.6 0.1 - 1.2 X10*3/uL [facility] Eosinophils Absolute Auto 0.3 0.0 - 0.4 X10*3/uL [facility] Basophils Absolute Auto 0.0 0.0 - 0.2 X10*3/uL [facility] NRBC Abs Auto 0.000 0.0 - 0.012 X10*3/uL [facility] 05/05/2024 2:41 AM EST 05/05/2024 2:44 AM EST us Generic External Data Provider LAB BLOOD ORDERAB LES Final Result [facility] [address] [place] [phone] * (ABNORMAL) Comprehensive Metabolic Panel (05/05/2024 2:41 AM EST) Sodium 136 135 - 145 mmol/L [facility] Potassium 4.2 3.3 - 5.1 mmol/L [facility] Chloride 104 96 - 108 mmol/L [facility] Carbon Dioxide 23 22 - 29 mmol/L [facility] Anion Gap 13 12 - 20 [facility] Urea Nitrogen (BUN) 16 9 - 16 mg/dL [facility] Creatinine, Serum 0.63 0.5 - 1.4 mg/dL [facility] Creatinine Clr Calc Pharmacy 105.4 [facility] Comment:Provided height and weight: 142.24 cm,83.5 kg.eGFR (calculated from the MDRD study equation) and eCrCl(calculated from the Cockcroft-Gault equation) are based ondifferent parameters and may not yield comparable results.If eCrCl result is absurd, please check patient'sheight/weight. Estimated Glomerular Filt Rate >60 [facility] Comment:Chronic Kidney Disea se: Estimated GFR < 60 mL/min/1.45b6Asrxpu Kidney Disease: Estimated GFR < 15 mL/min/1.73m2 Glucose 133(H) 60 - 115 mg/dL [facility] Calcium 9.2 8.4 - 10.2 mg/dL [facility] Bilirubin, Total 1.2(H) 0.0 - 1.0 mg/dL [facility] Aspartate Amino Transferase 22 5 - 31 U/L [facility] Alanine Aminotransferase 18 0 - 31 U/L [facility] Total Protein 8.4(H) 6.5 - 8.0 g/dL [facility] Albumin Level 4.3 3.5 - 5.0 g/dL [facility] Alkaline Phosphatase 108 39 - 117 U/L [facility] 05/05/2024 2:41 AM EST 05/05/2024 2:44 AM EST us Generic External Data Provider LAB BLOOD ORDERAB LES Final Result [facility] [address] [place] [phone] * HPV mRNA E6/E7 w/Reflex to HPV Genotypes 16, 18/45 (07/08/2023 11:07 AM EST) HPV nRNA E6/E7 Not Detected Not Detected [facility] Comment:Methodology: Transcr iption-Mediated AmplificationThis assay detects E6/E7 viral messenger RNA (mRNA) from 14high-risk HPV types (16,18,31,33,35,39,45,51,52,56,58,59,66,68).Cervical sources are required for HPV testing.If a vaginal source from a patient who has had atotal hysterectomy with removal of cervix wassubmitted, please contact the testing laboratoryfor alternative testing options.For additional information, please refer [email or web address]/BLE227w5(This link if provided for information/educational purposes only.)THIS TEST WAS PERFORMED AT:[address] [place] [id number] MÉNDEZ MD HPV mRNA E6/E7 TNP [facility] HPV 16 RNA TNP [facility] HPV 18/45 RNA [facility] 07/08/2023 11:0 7 AM EST 07/09/2023 11:30 AM EST us Davonte Cuellar [facility] CYTOLOGY ORDERABLES F inal Result Performing Organization Address City/State/[facility] Co de Phone Number [facility] [address] [place] [phone] * Pap Smear (07/08/2023 11:07 AM EST) Swab Cervix uteri structure / Unknown 07/08/2023 11:07 AM EST 07/09/2023 11:30 AM EST Narrative [facility] - 07/21/2023 4:17 PM EDT ----- ------- Name: Tabby Solitario ? Age/Sex: 38/F ? : 1985 Unit#: [id number] ?? Attend Dr: DAVONTE CUELLAR CNM ?Re07/08/23 ?Status: DEP REF ? Location: HO.HHCLNP ? Disch: ? ----- ------- SPEC : [id number] ? RECD: 07/09/23 ? STATUS: ??SOUT ? REQ NUM: [id number] ? PEBBLES: 07/08/23-1107 ? SUBM DR: DAVONTE CUELLAR CNM ? ENTERED: ??07/09/233 ?SP TYPE: Pap Smr ?OTHR DR: ? ORDERED: ??Pap Smear ? Interpretation ?? Satisfactory for evaluation. ?? Negative for intraepithelial lesion or malignancy. ?HPV mRNA E6/E7: ?NOT DETECTED ? This assay detects E6/E7 viral messenger RNA (mRNA) from 14 high-risk HPV types (16, 18, ?? 31, 33, 35, 39, 45, 51, 52, 56, 58, 59, 66, 68) ?? HPV testing performed by [employer], [place], [place]. ??See reference laboratory ?? portion of the EMR for entire report. ?Clinical Information LMP: Unknown date Previous PAP test: Unknown date/findings ? Material Received ?? ThinPrep-Cervical ----- ------- Signed (signature on file) ALVAREZ Graham (ASCP) 07/21/23 5007 ? ----- ------- ? END OF REPORT ? us Davonte Cuellar [facility] CYTOLOGY ORDERABLES F inal Result [facility] [address] [place] [phone] * Lipid Panel, Standard (05/07/2023 11:21 AM EST) Triglycerides 53 <150 mg/dL [facility] Comment:Desirable Triglyceri de: less than 150 mg/dLBorderline High Triglyceride 150-199 mg/dLHigh Triglyceride: 200-499 mg/dLVery High Triglyceride: greater than or equal to 5OO mg/dL Cholesterol 132 <200 mg/dL [facility] Comment:Desirable Cholestero l: less than 200 mg/dLBorderline High Cholesterol: 200-239 mg/dLHigh Cholesterol: greater than 239 mg/dL LDL Cholesterol Calculated 73 <100 mg/dL [facility] Comment:Desirable LDL: less than 100 mg/dLNear Optimal/Above Optimal LDL: 110- 129 mg/dLBorderline High LDL: 130-159 mg/dLHigh LDL: 160-189 mg/dLVery High LDL: greater than or equal to 190 mg/dL HDL Cholesterol 49 >40 mg/dL [facility] Comment:Desirable HDL: great er than 40 mg/dL Note: This HDL assay may give artificially low results in patients with liver disease. Blood Venous blood specimen / Unknown 05/07/2023 11:21 AM EST 05/07/2023 1:16 PM EST us Destiny Byrne [employer]OSURE ACT SPECIALIST LAB BLOOD ORDERABLES Final Resu lt [facility] [address] [place] [phone] * HIV AB/AG (07/29/2020 10:52 AM EDT) HIV AB/AG Nonreactive Nonreactive [facility] Comment: HIV-1 p24 Ag and/or HIV-1/HIV-2 Ab not detected. ?? A test result that is nonreactive does not exclude the possibility of exposure to or infection with HIV-1 and/or HIV-2. Nonreactive results in this assay for individuals with prior exposure to HIV-1 and/or HIV-2 may be due to antigen and antibody levels that are below the limit of detection of this assay. ?? The [facility] HIV Ag/Ab Combo assay result and supplemental assay results should be interpreted in conjunction with the patient's clinical presentation, history and other laboratory results. ??If the results are inconsistent with clinical evidence, additional testing is suggested to confirm the result. Hepatitis B Surface Antigen Negative Negative [facility] Hepatitis C Antibody Nonreactive Nonreactive [facility] Comment: Antibodies to HCV not detected; does not exclude early acute HCV infection. 07/29/2020 10:5 2 AM EDT us Nahomy Stokes HISTORICAL/NON ORDERABLE LABS Fi nal Result [facility] [address] from Last 3 Months or Most Recently Relevant to Health Maintenance Insurance [facility] C3 Care Teams Side Boss Relationship Specialty Start Date End Date Zoe Plascencia FNP [address] [place] [phone] PCP - General Family Medicine 01/11/24
--- OUTSIDE RECORDS SUMMARY | 2024-07-11 20:22 | XMS_ITS | Encounter Summary ---
Author Organization [employer] Address [address] [place] [address] Care Team Providers Care Underwear Trimmer Name Role Phone Destiny Byrne Primary Care Provider [phone] [facility] Primary Care Provider [phone] Encounter Details Date Type Department Care Team (Late st Contact Info) Description 12/07/2022 Orders Only [facility] [address], [place] [phone] Nemo Lagos DO [address], [place] [phone] Social History Tobacco Use Types Packs/Day Years [...] documented as of this encounter Care Teams Underwear Trimmer Relationship Specialty Start Date End Date Destiny Byrne FNP [address] [place] [address] PCP - General Family Medicine 05/27/22 01/10/24 BessemerZoe pritchard FNP [address] [place] [address] PCP - General Family Medicine 01/11/24 documented as of this encounter
--- OUTSIDE RECORDS SUMMARY | 2024-07-11 20:22 | XMS_ITS | Encounter Summary ---
Author Organization [employer] Address 75 [facility] 7t [place] [address] Care Team Providers Care Hospice Administrator Name Role Phone [facility] Primary Care Provider [phone] Reason for Visit * Reason Comments Pre-visit Planning (Unable to reach for PVP screening or LVM) Encounter Details Date Type Department Care Team ([facility] st Contact Info) Description 06/12/2024 Patient Outreach [facility]INE [address] [place], [place] [phone] [facility] 230 [place] [address] Pre-visit Planning ((Unable to reach for PVP screening or LVM)) Social History Tobacco Use Types Packs/Day Years [...] as of this encounter Progress Notes * Arianne Parham - 06/12/2024 9:37 AM EST CC Arianne placed outbound call to patient for pre-visit planning. Call would not go through. Unableto LVM. documented in this encounter Plan of Treatment Not on file documented as of this encounter Visit Diagnoses Not on filedocumented in this encounter Additional Health Concerns Assessment Noted Time PHQ-9 Depression Total Score: 0 06/26/19 23 9:43 AM EST documented as of this encounter Care Teams Hospice Administrator Relationship Specialty Start Date End Date Zoe Plascencia FNP [address] [place] [address] PCP - General Family Medicine 01/11/24 documented as of this encounter
--- OUTSIDE RECORDS SUMMARY | 2024-07-11 20:22 | XMS_ITS | Encounter Summary ---
Author Organization [employer] Address 75 [facility] 7t [place] [address] Care Team Providers Care School Crossing Guard Supervisor Name Role Phone Thais Zoe VEHICLE MAINTENANCE TECHNICIAN Primary Care Provider [phone] Reason for Visit * Reason Onset Date Comments Care Management 06/13/2024 [facility]- chart revi ew Encounter Details Date Type Department Care Team ([facility] st Contact Info) Description 06/13/2024 Telephone [facility] MEDICINE 230 [place] [address] Jaquelin Lopez RN [address] [place], [place] [phone] Care Management (C3CM- chart review) Social History Tobacco Use Types Packs/Day Years [...] encounter Miscellaneous Notes * Telephone Encounter - Jaquelin Lopez RN - 06/13/2024 8:14 AM EST ZIGGY Lopez RN, performed chart review, in anticipation of initial assessment with patient, as patient has stratified for C3 Adult Complex Care through the ADT feed. History significant for allergic rhinitis, class 2 obesity, mild intermittent asthma, thigh pain-musculoskeletal, hoarseness or changing voice, and trochanteric bursitis of right hip. Specialists include Audiology, dental, optometry, PT-ATI, and Nutrition. ED visits within the last 12 months include [facility] ED 06/12/24 Dx asthma exacerbation and viral syndrome. Last appointment in PCP office on 03/23/24. Next appointment scheduled for 06/23/24 at 9:30am with PCP for PE. documented in this encounter Plan of Treatment Not on file documented as of this encounter Visit Diagnoses Not on filedocumented in this encounter Additional Health Concerns Assessment Noted Time PHQ-9 Depression Total Score: 0 06/26/19 23 9:43 AM EST documented as of this encounter Care Teams School Crossing Guard Supervisor Relationship Specialty Start Date End Date Zoe Plascencia FNP [address] [place] [id number] PCP - General Family Medicine 01/11/24 documented as of this encounter
--- OUTSIDE RECORDS SUMMARY | 2024-07-11 20:22 | XMS_ITS | Encounter Summary ---
Author Organization [employer] Address [address] [facility] 7t [place] [address] Care Team Providers Care Shaker Flatwork Name Role Phone [place] [facility] Primary Care Provider [phone] Reason for Visit * Reason Onset Date Comments Care Management 07/05/2024 C3CM- initial as sessment/ enrollment Encounter Details Date Type Department Care Team ([facility] st Contact Info) Description 07/05/2024 Telephone [facility] MEDICINE [address] [place], [place] [phone] [facility], [facility] 230 [place], [place] [phone] Care Management (C3- initial assessment/ enrollment) Social History Tobacco Use Types Packs/Day Years [...] Telephone Encounter - Jaquelin Lopez RN - 07/05/2024 10:38 AM EST ZIGGY Lopez RN, provided notification to PCP [facility] of patient's enrollment intoC3 Complex Care Program. ZIGGY Lopez RN, completed care plan and sent to HIM to be scanned into the medical record. PCP notified and awaiting review from provider. CM plan: - assist with scheduling appointments with her providers/ specialists and provide patient with apptreminders - provide education on nutrition/ diet/ and lifestyle modifications. Provide patient with resources. - provide patient with resources based on positive SDOH needs * Telephone Encounter - Jaquelin Lopez RN - 07/05/2024 10:38 AM EST ZIGGY Lopez RN placed outbound call to patient for agreed upon time for initial assessment for enrollment into Adult Care Management Program. Patient's name, , and address were verified. Tabby is a 39 year old female with Hx of asthma, allergic rhinitis, class 2 obesity, right thigh pain, and trochanteric bursitis of right hip. Patient states she was recently seen in ED for asthma exacerbation. Patient then followed up at the [facility] walk in center on 06/14/24. Per patient, prescribed prednisone, which she states she took as prescribed. She reports improvement of symptoms overall. Per patient, still experiences asthma intermittently. She reports having an albuterol inhaler which she isusing as directed. She states she has not picked up the flonase or the zyrtec from the pharmacy butintends on doing so. Patient currently established with [facility] Optometry. She states she is up to date. She would like to establish care with dental. Per patient, currently on the wait list. She denies any immediate concerns. Patient recently seen in office by PCP on 06/23. She is aware that PCP placedreferrals to PT and Allergy. Per patient, received the referral letter for PT. CM advised she outreach the office to schedule an appt if she does not hear from their office in the next week. She agrees. In regards to the allergy referral, CM advised the referral is pending. Advised she will be contacted with appt details once scheduled. She agrees. Per patient, no Hx of behavioral health conditions. She states she is doing well emotionally and denies any concerns. Patient states she is currently living in housing with her 3 children. She states she has an 8-year-old, a 5 year old, and a 3-year-old. Per patient, her 3-year-old was receiving early intervention. She states her child is now being evaluated by another school as early intervention ended. Patient states that she is receiving thesupport that she needs and denies any concerns at this time. 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 Patient denies having any SDOH needs at this moment. Per patient, was notaware of her scheduled visit with Kianna soto. She agrees to reschedule the visit to 07/11/24 at 11: 00am. She denies any barriers to attending that visit. Care management program explained and contact information given. Patient verbalizes understanding, and able to repeat back to television script writer. A follow up call will be placed within 10 days, patient agrees with plan. documented in this encounter Plan of Treatment Not on file documented as of this encounter Visit Diagnoses Not on filedocumented in this encounter Additional Health Concerns Assessment Noted Time PHQ-9 Depression Total Score: 0 06/23/19 25 9:49 AM EST documented as of this encounter Care Teams Shaker Flatwork Relationship Specialty Start Date End Date Zoe Plascencia FNP [address] [place] [address] PCP - General Family Medicine 01/11/24 documented as of this encounter
--- OUTSIDE RECORDS SUMMARY | 2024-07-11 20:22 | XMS_ITS | Encounter Summary ---
Author Organization [employer] Address 75 [facility] 7t [place] [address] Care Team Providers Care Welder Apprentice Gas Name Role Phone [place] [facility] Primary Care Provider [phone] Reason for Visit * Reason Comments Care Coordination CM/CHW outreach Encounter Details Date Type Department Care Team (Latest Contact Info) Description 07/04/2024 Patient Outreach [facility] MEDICINE 230 [place], [place] [phone] [facility] 230 [place] [address] Care Coordination (CM/CHW outreach) Social History Tobacco [...] encounter Progress Notes * Dione Nevarez - 07/04/2024 9:57 AM EST CHW Dione Nevarez placed outbound call to patient introducing herself from [facility] CM Department, in regard to remind patient of Adult Complex Care program initial assessment appt for tomorrow 07/05/24 @ 10AM via telephone with CM Jaquelin Lopez RN. Patient's name and was confirmed. Patient is aware and confirmed will be available for call and has no barriers on attending call.Patient verbalized understanding and agrees with plan. documented in this encounter Plan of Treatment Not on file documented as of this encounter Visit Diagnoses Not on filedocumented in this encounter Additional Health Concerns Assessment Noted Time PHQ-9 Depression Total Score: 0 06/23/19 9:49 AM EST documented as of this encounter Care Teams Welder Apprentice Gas Relationship Specialty Start Date End Date Zoe Plascencia FNP [address] [place] [id number] PCP - General Family Medicine 01/11/24 documented as of this encounter
--- OUTSIDE RECORDS SUMMARY | 2024-07-11 20:22 | XMS_ITS | Encounter Summary ---
Author Organization [employer] Address 75 [facility] 7t [place] [address] Care Team Providers Care Drive Thru Order Taker Name Role Phone Destiny Byrne [facility] Primary Care Provider [phone] [facility] Primary Care Provider [phone] Reason for Visit * Reason Onset Date Comments Nurse Triage 12/14/2022 Encounter Details Date Type Department Care Team (Late st Contact Info) Description 12/14/2022 Telephone [facility] MEDICINE [address] [place] [address] Destiny Byrne FNP [address] [place] [address] Nurse Triage Social History Tobacco Use Types Packs/Day Years [...] encounter Miscellaneous Notes * Telephone Encounter - Mary Lott RN - 12/14/2022 5:04 PM EDT Triage call Pt reports right leg pain has been occurring and worse the last 2 months. Pt reports the pain is from right knee to thigh to buttocks. Pt reports it begins to hurt more as Pt has to go upand down stairs for apt. Pt denies redness or lump on vein. Pt reports no effect from ice/heat, motrin. Pt is able to walk but, with much pain and a limp. Advised Pt to come to [facility] to be seen this evening and Pt agrees. Hours open till 8pm. Protocol Used: Leg Pain (Adult) Protocol-Based Disposition: See in Office or Video Visit Today or Tomorrow Video visit not offered Positive Triage Question: * Patient wants to be seen * All higher-acuity triage questions were negative Care Advice Discussed: * Reassurance and Education - Leg Pain * Pain Medicines * Pain Medicines - Extra Notes and Warnings * Reasons To Call Back - Moderate pain (e.g., limping) lasts more than 3 days - Mild pain lasts more than 7 days - Signs of infection occur (e.g., spreading redness, warmth, fever) - You become worse * Use a Cold Pack for Pain * Use Heat on Area After 48 Hours * Local Heat - Bathtub Option * Rest * Telephone Encounter - Anabell Del Castillo - 12/14/2022 4:50 PM EDT Symptom: Leg Pain - Not From Injury Outcome: Schedule an urgent appointment (within 1 hour) or talk to a nurse or provider soon Reason: Severe pain now The caller accepted this outcome Please contact pt at [phone] documented in this encounter Plan of Treatment Not on file documented as of this encounter Visit Diagnoses Not on filedocumented in this encounter Additional Health Concerns Assessment Noted Time PHQ-9 Depression Total Score: 0 06/26/19 23 9:43 AM EST documented as of this encounter Care Teams Drive Thru Order Taker Relationship Specialty Start Date End Date Destiny Byrne FNP [address] [place] [address] PCP - General Family Medicine 05/27/22 01/10/24 [place]oe FNP [address] [place] [address] PCP - General Family Medicine 01/11/24 documented as of this encounter
--- OUTSIDE RECORDS SUMMARY | 2024-07-11 20:22 | XMS_ITS | Encounter Summary ---
Author Organization [employer] Address 75 [facility] 7t [place] [address] Care Team Providers Care Balance Assembler Name Role Phone Destiny Byrne [facility] Primary Care Provider [phone] [place] [facility] Primary Care Provider [phone] Reason for Visit * Reason Comments Med Refill Encounter Details Date Type Department Care Team (Late st Contact Info) Description 08/09/2022 Refill [facility] [address] [place], [place] [phone] Elsy Thompson MD [address] [place], [place] [phone] Allergic rhinitis, unspecified seasonality, unspecified trigger Social History Tobacco Use Types Packs/Day Years [...] suspected to have Coronavirus/COVID-19? No / Unsure 07/28/2022 9:43 AM EDT documented as of this encounter Plan of Treatment Not on file documented as of this encounter Visit Diagnoses Diagnosis Allergic rhinitis, unspecified seasonality, unspecified trigger documented in this encounter Additional Health Concerns Assessment Noted Time PHQ-9 Depression Total Score: 0 06/26/19 9:43 AM EST documented as of this encounter Care Teams Balance Assembler Relationship Specialty Start Date End Date Destiny Byrne FNP [address] [place] [address] PCP - General Family Medicine 05/27/22 01/10/24 CharlotteZoe pritchard FNP [address] [place] [address] PCP - General Family Medicine 01/11/24 documented as of this encounter
--- OUTSIDE RECORDS SUMMARY | 2024-07-11 20:22 | XMS_ITS | Encounter Summary ---
Author Organization [employer] Address 75 [facility] 7t [place] [address] Care Team Providers Care Credit Rating Inspector Name Role Phone Thais [facility] Primary Care Provider [phone] Encounter Details Date Type Department Care Team (Late st Contact Info) Description 07/11/2024 11:00 AM EST Office Visit [facility] [address] [place], [place] [phone] Kianna Pineda CNM [address] [place], [place] [phone] Checking of intrauterine device (Primary Dx); Vaginal discharge; Tinea Social History Tobacco Use Types Packs/Day Years [...] Mass Index 40.25 07/11/2024 11:01 AM EST documented in this encounter Progress Notes * Kianna Pineda CNM - 07/11/2024 11:00 AM EST Subjective Patient ID: Tabby Solitario is a 39 y.o. female who presents for EPIDEMIOLOGIST visit Pap NIL/HPV neg 06/2023. Pap NIL/HPV neg 07/2018. Progestin IUD inserted in 2021, likely Mirena basedon string color. Usp AMAB partner, no safety concerns. Happy with IUD, amenorrheic. Thinking about tubal ligation when IUD is due to be removed. Notes increased discharge recently, no other vaginal/urinary symptoms. Notes itchy rash on inner thighs. Review of Systems Genitourinary: Negative for dyspareunia, dysuria, frequency, genital sores, hematuria, menstrual problem, pelvic pain, urgency, vaginal bleeding, vaginal discharge and vaginal pain. No abnormal pap, no abnormal bleeding, no breast pain, no breast mass, no nipple discharge Skin: Positive for rash. Objective BP 106/65 (BP Location: Left arm, Patient Position: Sitting, BP Cuff Size: Adult) Pulse 78 Temp97.6 ??F (36.4 ??C) (Temporal) Resp 18 Ht 4' 9 (1.448 m) Wt 186 lb (84.4 kg) SpO2 98% BMI 40.25 kg/m?? Physical Exam Constitutional: Appearance: Normal appearance. Chest: Breasts: Right: Normal. No swelling, bleeding, inverted nipple, mass, nipple discharge, skin change or tenderness. Left: Normal. No swelling, bleeding, inverted nipple, mass, nipple discharge, skin change or tenderness. Genitourinary: General: Normal vulva. Labia: Right: No rash, tenderness, lesion or injury. Left: No rash, tenderness, lesion or injury. Vagina: No signs of injury and foreign body. Vaginal discharge present. No erythema, tenderness, bleeding or lesions. Cervix: No cervical motion tenderness, discharge, friability, lesion, erythema, cervical bleeding or eversion. Uterus: Normal. Not enlarged and not tender. Adnexa: Right adnexa normal and left adnexa normal. Right: No mass, tenderness or fullness. Left: No mass, tenderness or fullness. Comments: IUD strings noted. Body of IUD nonpalpable. Scaly rash on bilateral inner thighs, c/w tinea Lymphadenopathy: Upper Body: Right upper body: No supraclavicular or axillary adenopathy. Left upper body: No supraclavicular or axillary adenopathy. Neurological: Mental Status: She is alert. Psychiatric: Mood and Affect: Mood normal. Behavior: Behavior normal. Assessment/Plan Diagnoses and all orders for this visit: Checking of intrauterine device Remove/replace IUD by 8 y from insertion. May remove any time before then if desired. If interestedin tubal ligation, would advise prior to having IUD removed. Discussed vasectomy as well. She prefers tubal ligation. Pap/HPV 2028. Vaginal discharge - Bacterial Vaginosis Panel Bacterial vaginosis swab sent. Will treat positive results. Tinea For Lotrimin as prescribed. If no improvement, will refer to derm. Other orders - clotrimazole (Lotrimin) 1 % cream; Apply topically 2 times daily. Use for 14 days. If improved but not fully gone, continue for a total of 28 days. documented in this encounter Plan of Treatment Scheduled Orders Name Type Priority Associated Diagnoses Orde r Schedule Bacterial Vaginosis Panel Microbiology Routine Vaginal discharge Ordered: 07/11/2024 documented as of this encounter Visit Diagnoses Diagnosis Checking of intrauterine device- Primary Vaginal discharge Leukorrhea, not specified as infective Tinea Dermatophytosis of unspecified site documented in this encounter Additional Health Concerns Assessment Noted Time PHQ-9 Depression Total Score: 0 06/23/19 25 9:49 AM EST documented as of this encounter Care Teams Credit Rating Inspector Relationship Specialty Start Date End Date Zoe Plascencia FNP [address] [place] [phone] PCP - General Family Medicine 01/11/24 documented as of this encounter
--- OUTSIDE RECORDS SUMMARY | 2024-07-11 20:22 | XMS_ITS | Encounter Summary ---
Author Organization [employer] Address [address] 7t [place] [address] Care Team Providers Care Investor Relations Director Name Role Phone [facility] Primary Care Provider [phone] Encounter Details Date Type Department Care Team (Latest Contact Info) Description 06/14/2024 Travel Social History Tobacco Use Types Packs/Day [...] documented as of this encounter Care Teams Investor Relations Director Relationship Specialty Start Date End Date Zoe Plascencia FNP [address] [place] [address] PCP - General Family Medicine 01/11/24 documented as of this encounter
--- OUTSIDE RECORDS SUMMARY | 2024-07-11 20:22 | XMS_ITS | Encounter Summary ---
Author Organization [employer] Address [address] [facility] [facility] [address] 7t [place] [address] Care Team Providers Care Compliance Assistant Name Role Phone [place] [facility] Primary Care Provider [phone] Encounter Details Date Type Department Care Team (Latest Contact Info) Description 07/11/2024 Travel Social History Tobacco Use Types Packs/Day [...] documented as of this encounter Care Teams Compliance Assistant Relationship Specialty Start Date End Date Zoe Plascencia FNP [address] [place] [id number] PCP - General Family Medicine 01/11/24 documented as of this encounter
[2024-07-12 14:51] LABS: Bacterial Vaginosis PCR POSITIVE (Negative); Candida Group PCR NOT DETECTED (Not Detect); Candida glab krusei PCR NOT DETECTED (Not Detect); Trichomonas vaginalis PCR NOT DETECTED (Not Detect)
== END 2024-07-11 16:48 | disposition home or self-care (01) ==
LOC: HO.HHCLNP 16:47
PROVIDERS: Visit Provider Advanced Practice Midwife
DX: N89.8 Other specified noninflammatory disorders of vagina (principal)
CPT/HCPCS: 81515

== ENCOUNTER 2025-01-23 12:48 | Emergency (ER) | payer MEDICAID, SELFPAY ==
--- NOTE | ~2025-01-23 | US_ITS ---
EXAMINATION: US TRIPLEX LOWER EXTREMITY, RIGHT CLINICAL INFORMATION: Right calf pain and tenderness COMPARISON: 08/16/2018 TECHNIQUE: Color-flow triplex imaging with spectral analysis and compression Doppler were performed on the right lower extremity. FINDINGS: Respiratory variation, normal compression and augmented flow are noted throughout the right lower extremity. The visualized common femoral vein, superficial femoral vein, profunda femoral vein, popliteal vein and midcalf peroneal and posterior tibial venous segments show no evidence of deep venous thrombosis. US/US venous duplex LE RT IMPRESSION: No evidence of deep venous thrombosis involving the right lower extremity. Electronically signed by: Addison Parks MD 01/23/2025 02:36 PM EDT
--- NOTE | ~2025-01-23 | XR_ITS ---
EXAMINATION: XR LUMBAR SPINE 2-3 VIEWS HISTORY: pain COMPARISON: There are no prior studies for comparison. FINDINGS: AP, lateral, and coned down views of the lumbar spine are submitted. Osseous mineralization is normal. Five nonrib-bearing lumbar vertebral bodies are identified, maintaining normal height and alignment without evidence of fracture or spondylolisthesis. The intervertebral disc spaces are preserved. The posterior elements are intact. IUD is seen in the midline of the pelvis. XR/XR lumbar spine 2-3V IMPRESSION: Unremarkable examination of the lumbar spine. Electronically signed by: Tahir Hirsch MD 01/23/2025 01:32 PM EDT
[2025-01-23 13:10] VITALS: BP 123/59; PULSE 76; RESP 18; TEMP 36.2; O2SAT 98; BMI 40.2
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
[2025-01-23] MEDS: Lidocaine 4 % Patch ADH..PATCH 1 PATCH TRANSDERMA (17:46)
[2025-01-23 17:51] VITALS: BP 123/59; PULSE 76; RESP 18; TEMP 36.2; O2SAT 98
--- OUTSIDE RECORDS SUMMARY | 2025-01-23 19:10 | XMS_ITS | Encounter Summary ---
Author Organization [employer] Address [address] [place] [address] [address] [place] [address] Care Team Providers Care Hide Washer Name Role Phone Destiny Byrne [facility] Primary Care Provider [phone] [facility] Primary Care Provider [phone] Reason for Visit * Reason Onset Date Comments Results 11/12/2022 Encounter Details Date Type Department Care Team ([facility] st Contact Info) Description 11/12/2022 Telephone [facility] MED[facility] [address] [place], [place] [phone] Destiny Byrne FNP [address] [place] [address] Results Social History Tobacco Use Types Packs/Day [...] encounter Miscellaneous Notes * Telephone Encounter - Renan Ganrica RN - 11/12/2022 11:43 AM EDT T/C [...] done on 11/06. Please contact pt at [phone] documented in this encounter Plan of Treatment Upcoming Encounters Date Type Department Care Team (Late st Contact Info) Description 02/07/2025 11:15 AM EDT Office Visit [facility] MED[facility]INE [address] [place] [address] Zoe Plascencia FNP [address] [place] [address] documented as of this encounter Visit Diagnoses Not on filedocumented in this encounter Additional Health Concerns Assessment Noted Time PHQ-9 Depression Total Score: 0 06/26/19 9:43 AM EST documented as of this encounter Care Teams Hide Washer Relationship Specialty Start Date End Date Destiny Byrne FNP [address] [place] [id number] PCP - General Family Medicine 05/27/22 01/10/24 Zoe Plascencia FNP [address] [place] [phone] PCP - General Family Medicine 01/11/24 documented as of this encounter
--- OUTSIDE RECORDS SUMMARY | 2025-01-23 19:10 | XMS_ITS | Encounter Summary ---
Author Organization [employer] Address [address] [facility] [address]t [place] [address] Care Team Providers Care Ore Bridge Operator Name Role Phone Destiny Byrne [facility] Primary Care Provider [phone] [facility] Primary Care Provider [phone] Reason for Visit * Reason Onset Date Comments Nurse Triage 12/14/2022 Encounter Details Date Type Department Care Team ([facility] st Contact Info) Description 12/14/[address] [facility] MEDICINE [address] [place], [place] [phone] Destiny Byrne FNP [address] [place], [place] [phone] Nurse Triage Social History Tobacco Use Types [...] a limp. Advised Pt to come to [facility] to be seen this evening and Pt [...] accepted this outcome Please contact pt at [phone] documented in this encounter Plan of Treatment Upcoming Encounters Date Type Department Care Team (Late st Contact Info) Description 02/07/2025 11:15 AM EDT Office Visit [facility] MEDICINE [address] [place], [place] [phone] Zoe Plascencia FNP [address] [place], [place] [phone] documented as of this encounter Visit Diagnoses Not on filedocumented in this encounter Additional Health Concerns Assessment Noted Time PHQ-9 Depression Total Score: 0 06/26/19 9:43 AM EST documented as of this encounter Care Teams Ore Bridge Operator Relationship Specialty Start Date End Date Destiny Byrne FNP [address] [place] [address] PCP - General Family Medicine 05/27/22 01/10/24 Zoe Plascencia FNP [address] [place] [address] PCP - General Family Medicine 01/11/24 documented as of this encounter
--- OUTSIDE RECORDS SUMMARY | 2025-01-23 19:10 | XMS_ITS | Encounter Summary ---
Author Organization [employer] Address [address] [place] [address] [address] [place] [address] Care Team Providers Care Senior Structural Engineer Name Role Phone Destiny Byrne [facility] Primary Care Provider [phone] [place] [facility] Primary Care Provider [phone] Reason for Visit * Reason Comments Med Refill Encounter Details Date Type Department Care Team (Late st Contact Info) Description 01/01/2023 Refill [facility] [address] [place] [phone] Ronnie Odell MD [address] [place] [address] Acute non-recurrent frontal sinusitis Social History Tobacco [...] as of this encounter Plan of Treatment Upcoming Encounters Date Type Department Care Team (Late st Contact Info) Description 02/07/2025 11:15 AM EDT Office Visit [facility] [address] [place] [address] [place] [facility] [address] [place] [address] documented as of this encounter Visit Diagnoses Diagnosis Acute non-recurrent frontal sinusitis documented in this encounter Additional Health Concerns Assessment Noted Time PHQ-9 Depression Total Score: 0 06/26/19 9:43 AM EST documented as of this encounter Care Teams Senior Structural Engineer Relationship Specialty Start Date End Date Destiny Byrne FNP [address] [place] [address] PCP - General Family Medicine 05/27/22 01/10/24 CadizZoe pritchard FNP [address] [place] [address] PCP - General Family Medicine 01/11/24 documented as of this encounter
--- OUTSIDE RECORDS SUMMARY | 2025-01-23 19:10 | XMS_ITS | Encounter Summary ---
Author Organization [employer] Address [address] [facility] 7[address] [place] [address] Care Team Providers Care Under Presser Name Role Phone Destiny Byrne [facility] Primary Care Provider [phone] [facility] Primary Care Provider [phone] Reason for Visit * Reason Comments Med Refill Encounter Details Date Type Department Care Team ([facility] Contact Info) Description 08/09/2022 Refill [facility] [address] [place] [phone] Elsy Thompson MD [address] [place] [address] Allergic rhinitis, unspecified seasonality, unspecified trigger Social [...] Upcoming Encounters Date Type Department Care Team ([facility] st Contact Info) Description 02/07/2025 11:15 AM EDT Office Visit [facility] MED[facility]INE [address] [place] [address] Zoe Plascencia FNP [address] [place] [address] documented as of this encounter Visit Diagnoses Diagnosis Allergic rhinitis, unspecified seasonality, unspecified trigger documented in this encounter Additional Health Concerns Assessment Noted Time PHQ-9 Depression Total Score: 0 06/26/19 23 9:43 AM EST documented as of this encounter Care Teams Under Presser Relationship Specialty Start Date End Date Destiny Byrne FNP [address] [place] [address] PCP - General Family Medicine 05/27/22 01/10/24 Zoe Plascencia FNP [address] [place] [address] PCP - General Family Medicine 01/11/24 documented as of this encounter
--- OUTSIDE RECORDS SUMMARY | 2025-01-23 19:10 | XMS_ITS | Encounter Summary ---
Author Organization [email or web address] Address [address] [facility] [address] [place] [address] Care Team Providers Care Fermenter Name Role Phone Destiny Byrne [facility] Primary Care Provider [phone] [facility] Primary Care Provider [phone] Reason for Visit * Reason Onset Date Comments Appointment Request 11/23/2023 Encounter Details Date Type Department Care Team ([facility] Contact Info) Description 11/23/2023 Telephone [facility] MEDICINE [address] [place], [place] [phone] Destiny Byrne FNP [address] [place], [place] [phone] Appointment Request Social History Tobacco Use Types [...] Description 02/07/2025 11:15 AM EDT Office Visit [facility] [address] [place] [address] ThaisZoe pritchard FNP [address] [place] [address] documented as of this encounter Visit Diagnoses Not on filedocumented in this encounter Additional Health Concerns Assessment Noted Time PHQ-9 Depression Total Score: 0 06/26/19 23 9:43 AM EST documented as of this encounter Care Teams Fermenter Relationship Specialty Start Date End Date Dsetiny Byrne FNP [address] [place] [address] PCP - General Family Medicine 05/27/22 01/10/24 Zoe Plascencia FNP [address] [place] [address] PCP - General Family Medicine 01/11/24 documented as of this encounter
--- OUTSIDE RECORDS SUMMARY | 2025-01-23 19:10 | XMS_ITS | Clinical Summary ---
Author Organization [employer] Address [address] [facility] 7t [place] [address] Care Team Providers Care Cord Splicer Name Role Phone Zoe Plascencia CONTINUOUS IMPROVEMENT CONSULTANT Primary Care Provider [phone] Allergies No known active allergies Medications cyclobenzaprine (Flexeril) 10 MG tabletIndication s:Thigh pain, musculoskeletal, right take 1 tablet by oral route at bedtime as needed 10 tablet 3 Active Nebulizers misc 1 kit if needed in the morning, at noon, in the evening, and at bedtime (Shortness of breath, cough, wheezing). Use as directed. Given in walk in center on 08/09/2023 education provided Active Deep Sea Nasal [place] 0.65 % nasal spray USE 1 SPRAY IN EACH NOSTRIL NEEDED FOR NASAL CONGESTION 44 mL 1 4 Active albuterol (Ventolin HFA) 108 (90 Base) MCG/ACT inhalerIndicatio ns:Mild asthma exacerbation,Mod erate persistent asthma with acute exacerbation INHALE 2 PUFFS BY MOUTH EVERY 4 HOURS NEEDED FOR WHEEZING OR SHORTNESS OF BREATH 18 g 1 4 Active clotrimazole (Lotrimin) 1 % cream Apply topically 2 times daily. Use for 14 days. If improved but not fully gone, continue for a total of 28 days. 60 g 1 5 Active albuterol (2.5 MG/3ML) 0.083% nebulizer solutionIndicati ons:Moderate persistent asthma with acute exacerbation Take 3 mL (2.5 mg) by nebulization every 4 (four) hours if needed for wheezing. INHALE 1 AMPULE USING A NEBULIZER EVERY 6 HOURS NEEDED FOR WHEEZING OR SHORTNESS OF BREATH 90 mL 1 5 Active guaiFENesin (Mucinex) 600 MG 12 hr tablet Take 2 tablets (1,200 mg) by mouth if needed in the morning and at bedtime for cough or congestion. Do not crush, chew, or split. 30 tablet 5 026 Active cetirizine (ZyrTEC) 10 MG tabletIndication s:Allergic rhinitis, unspecified seasonality, unspecified trigger TAKE 1 TABLET BY MOUTH EVERY MORNING 30 tablet 11 5 Active fluticasone furoate (Arnuity Ellipta) 100 MCG/ACT inhalerIndicatio ns:Mild asthma exacerbation Inhale 1 puff Once per day. Rinse mouth with water after use to reduce aftertaste and incidence of candidiasis. Do not swallow. 30 each 5 Active fluticasone (Flonase) 50 MCG/ACT nasal sprayIndications :Allergic rhinitis, unspecified seasonality, unspecified trigger Use 1 spray each nostril daily. Shake gently. Before first use, prime pump. After use, clean tip and replace cap. 16 g 5 Active ibuprofen 600 MG tablet TAKE 1 TABLET BY MOUTH EVERY 6 HOURS NEEDED FOR MILD PAIN 40 tablet 1 5 Active Active Problems Problem Noted Date Diagnosed Date Strep pharyngitis 12/12/2024 Assessment & Plan (12/12/2024 10:53 AM EDT): Drink plenty of fluids and rest Trochanteric bursitis of right hip 04/16/2023 Assessment [...] 12/14/2023 Mild asthma exacerbation 03/25/202310/2023 Overview (03/25/2023): -Hardin of prednisone 40mg for 5 days given 03/25/2023. -Flovent and albuterol script sent 03/25/2023 Assessment & Plan (03/25/2023 10:06 AM EST): -Hardin of prednisone 40mg for 5 days given [...] Encounters Date Type Department Care Team Description 12/21/2024 Telephone [facility] [address] [place] [address] Zoe Plascencia FNP chart prep 12/15/2024 Patient Outreach [facility] [address] [place], [place] [phone] Zoe Plascencia FNP Pre-visit Planning ([facility] unable to reach [facility] ) 12/12/2024 9:15 AM EDT Office Visit [facility] [address] [place] [address] Lynnette Garza MD Viral URI with cough; Sore throat; Strep pharyngitis 12/12/2024 Travel 12/12/2024 Telephone [facility] [address] [place] [address] Zoe Plascencia FNP Nurse Triage from Last 3 Months Immunizations Immunization Administration Dates Next Due DTP 1985,1986,1986 DTaP 04/11/1990,07/09/1987 HPV, Quadrivalent 05/23/2007,12/23/2006,10/26/19 07 Hep B, Adolescent or Pediatric 07/08/1998,1997,03/11/1998 Hep B, adult 12/01/2023 Influenza injectable quadriv alent IIV4 with preservative 03/26/2015 Influenza injectable quadriv alent preservative free 05/07/2023,04/26/2019,07/07/2018 Influenza, IIV3, injectable 05/13/2010 Influenza, Split (incl. anahy fied surface antigen) 08/08/2013 Influenza, seasonal, injecta ble, preservative free 06/23/2024 MMR 10/23/2015,11/26/1994,07/09/1987 OPV, Trivalent 07/09/1987, 7,1986,06/11 Pfizer Covid-19 Vaccine 12+ 06/23/2024,0 05/28/2023,07/22/2021,11/01,10/11/2020 Pfizer Covid-19 Vaccine 12+ jian-sucrose (Quintana Cap) 07/22/2021 Pneumococcal Conjugate PCV 20 06/23/2024 Pneumococcal Polysaccharide PPSV23 01/17/2019 TD (adult), 2 Lf tetanus tox oid, preservative free, adsorbed 01/27/1999 Tdap 01/06/2021,,01/05/2019,08/18,09/30/2010 Family History Medical History Relation Name Comments Asthma Mother Olivia Cordova Hypertension Mother Olivia Cordova Asthma Sister 1 Davonte Solitario Asthma Sister 2 Stephy Singh Relation Name Status Comments Mother Olivia Cordova Sister 1 Davonte Solitario Sister 2 Stephy [...] Q2 Not on file 01/10/2024 Comments No Intention Date Recorded No desire to become (finding) 0 07/11/2024 Sex and Gender Information Value Date Recorded Sex Assigned at Female 03/09/2022 10:14 AM EDT Legal Sex Female 10:14 AM EDT Gender Identity Female 03/09/2022 10:14 AM EDT Sexual Orientation Straight 03/09/2022 10 :14 AM EDT Last Filed Vital Signs Vital Sign Reading Time Taken Comments Blood Pressure 110/74 12/12/2024 9:27 AM EDT Pulse 118 12/12/2024 9:27 AM EDT Temperature 39.3 C (102.7 F) 12/12/2024 9:27 AM EDT Respiratory Rate 20 12/12/2024 9:27 AM EDT Oxygen Saturation 98% 12/12/2024 9:27 AM EDT Inhaled Oxygen Concentration - - Weight 86.2 kg (190 lb) 12/12/2024 9:27 AM EDT Height 144.8 cm (4' 9 ) 12/12/2024 9:27 AM EDT Body Mass Index 41.12 12/12/2024 9:27 AM EDT Plan of Treatment Upcoming Encounters Date Type Department Care Team (Late st Contact Info) Description 02/07/2025 11:15 AM EDT [facility] [address] [place] [address] [facility] [address] [place] [address] Health Maintenance Due Date Last Done Comments Disability Screening 1985 SDOH Screening 12/13/2024 12/14/2023 Influenza Vaccine (#1) 2025 , 05/07/2023, 04/26/2019, Additional history exists Alcohol/Substance Use Screening 06/23/2025 06/23/2024 Depression Screening 06/23/2025 06/23/2024, 06/23/19 Family Planning (PISQ) 07/11/2025 07/11/2024 Tobacco Screening 10/19/2025 10/19/2024 Lipid Panel 05/07/2028 05/07/2023, 07/22/2021 Cervical Cancer [...] Completed 06/23/2024, , 07/22/2021, Additional history exists Pneumococcal Vaccine: Pediatrics (0 to 5 Years) and At-Risk Patients (6 to 49) Years Completed 06/23/2024, 01/17/2019 HIB Vaccines Aged Out No longer eligi ble based on patient's age to complete this topic Hepatitis A Vaccines Aged Out No long er eligible based on patient's age to complete this topic Meningococcal B Vaccine Aged Out No l onger eligible based on patient's age to complete [...] Procedure Name Priority Date/Time Associated Diagnosis Comments POC BRITT ID NOW STREP A Routine 12/12/2024 9:28 AM EDT Sore throat POCT INFLUENZA B (ID NOW RAPID MOLECULAR) Routine 12/12/2024 9:28 AM EDT Viral URI with cough POCT INFLUENZA A (ID NOW RAPID MOLECULAR) Routine 12/12/2024 9:28 AM EDT Viral URI with cough POCT RAPID COVID ANTIGEN Routine 12/12/2024 9:28 AM EDT Viral URI with cough HPV MRNA E6/E7 REFLEX TO HPV 16, 18/45 Routine 07/08/2023 11:07 AM EST PAP SMEAR Routine 07/08/2023 11:07 AM EST Cervical cancer screening LIPID PANEL, STANDARD Routine 05/07/2023 11:21 AM EST Adult BMI 38.0-38.9 kg/sq m [facility] HISTORICAL HIV AB/AG Routine 07/29/2020 10:52 AM EDT from Last 3 Months or Most Recently Relevant to Health Maintenance Results * POCT Rapid Influenza B BRITT ID NOW (12/12/2024 9:28 AM EDT) Influenza B Negative Negative, Indeterminate [facility] Swab 12/12/2024 9:28 AM EDT us Lynnette Man MD POINT OF CARE TEST EN TER/EDIT ORDERABLES Final Result [facility] [address] [place] [phone] * POCT Rapid Influenza A BRITT ID NOW (12/12/2024 9:28 AM EDT) Influenza A Negative Negative, Indeterminate [facility] Swab 12/12/2024 9:28 AM EDT Lynnette Man MD POINT OF CARE TEST EN TER/EDIT ORDERABLES Final Result Performing Organization Address [facility] Co de Phone Number [facility] [address] [place] [phone] * (ABNORMAL) POCT Rapid Strep A BRITT ID NOW (12/12/2024 9:28 AM EDT) [facility] Rapid Strep A Screen Positive( A) Negative, None Detected Swab 12/12/2024 9:28 AM EDT Lynnette Man MD POINT OF CARE TEST EN TER/EDIT ORDERABLES Final Result * POCT Rapid Covid-19 BinaxNOW (12/12/2024 9:28 AM EDT) [facility] Rapid COVID Ag Negative [facility] Swab 12/12/2024 9:28 AM EDT Lynnette Man MD POINT OF CARE TEST EN TER/EDIT ORDERABLES Final Result Performing Organization Address [facility] de Phone Number [facility] [address] [place] [phone] * HPV mRNA E6/E7 w/Reflex to HPV Genotypes 16, 18/45 (07/08/2023 11:07 AM EST) [facility] HPV nRNA E6/E7 Not Detected Not Detected [facility] Comment:Methodology: Transcr iption-Mediated AmplificationThis assay detects E6/E7 viral messenger RNA (mRNA) from 14high-risk HPV types (16,18,31,33,35,39,45,51,52,56,58,59,66,68).Cervical sources are required for HPV testing.If a vaginal source from a patient who has had atotal hysterectomy with removal of cervix wassubmitted, please contact the testing laboratoryfor alternative testing options.For additional information, please refer tohttp://education.questdiagnostics.com/faq/IOQ913g9(This link if provided for information/educational purposes only.)THIS TEST WAS PERFORMED AT:[employer] [place] [phone] MÉNDEZ MD HPV mRNA E6/E7 TNP [facility] HPV 16 RNA TNP [facility] HPV 18/45 RNA TNP [facility] 07/08/2023 11:0 7 AM EST 07/09/2023 11:30 AM EST Davonte Cuellar CNM LAB CYTOLOGY ORDERABLES F inal Result [facility] [address] [place] [phone] * Pap Smear (07/08/2023 11:07 AM EST) Swab Cervix uteri structure / Unknown 07/08/2023 11:07 AM EST 07/09/2023 11:30 AM EST Narrative [facility] - 07/21/2023 4:17 PM EDT ----- ------- Name: Tabby Solitario Age/Sex: 38/F : 1985 Unit#: [id number] Attend Dr: DAVONTE CUELLAR CNM Re07/08/23 Status: DEP REF Location: HO.HHCLNP Disch: ----- ------- SPEC : [id number] RECD: 07/09/23-1129 STATUS: RADHA HUNG NUM: [id number] PEBBLES: 07/08/23-[address] [facility] [address]: DAVONTE CUELLAR CNM ENTERED: 07/09/23-1323 SP TYPE: Pap Smr OTHR DR: ORDERED: Pap Smear Interpretation Satisfactory for evaluation. Negative for intraepithelial lesion or malignancy. HPV mRNA E6/E7: NOT DETECTED This assay detects E6/E7 viral messenger RNA (mRNA) from 14 high-risk HPV types (16, 18, 31, 33, 35, 39, 45, 51, 52, 56, 58, 59, 66, 68) HPV testing performed by [facility], [place], [place]. See reference laboratory portion of the EMR for entire report. Clinical Information LMP: Unknown date Previous PAP test: Unknown date/findings Material Received ThinPrep-Cervical ----- ------- Signed (signature on file) ALVAREZ Graham (ASCP) 07/21/23 1617 ----- ------- END OF REPORT Davonte Cuellar CNM LAB CYTOLOGY ORDERABLES F inal Result [facility] [address] [place] [phone] * Lipid Panel, Standard (05/07/2023 11:21 AM EST) Triglycerides 53 <150 mg/dL [facility] Comment:Desirable Triglyceri de: less than 150 mg/dLBorderline High Triglyceride 150-199 mg/dLHigh Triglyceride: 200-499 mg/dLVery High Triglyceride: greater than or equal to 5OO mg/dL Cholesterol 132 <200 mg/dL [facility] Comment:Desirable Cholestero l: less than 200 mg/dLBorderline High Cholesterol: 200-239 mg/dLHigh Cholesterol: greater than 239 mg/dL LDL Cholesterol Calculated 73 <100 mg/dL [facility] Comment:Desirable LDL: less than 100 mg/dLNear Optimal/Above Optimal LDL: 110- 129 mg/dLBorderline High LDL: 130-159 mg/dLHigh LDL: 160-189 mg/dLVery High LDL: greater than or equal to 190 mg/dL HDL Cholesterol 49 >40 mg/dL [facility] Comment:Desirable HDL: great er than 40 mg/dL Note: This HDL assay may give artificially low results in patients with liver disease. Blood Venous blood specimen / Unknown 05/07/2023 11:21 AM EST 05/07/2023 1:16 PM EST Destiny Byrne CONTINUOUS IMPROVEMENT CONSULTANT LAB BLOOD ORDERABLES Final Resu lt [facility] [address] [place] [phone] * HIV AB/AG (07/29/2020 10:52 AM EDT) HIV AB/AG Nonreactive Nonreactive [facility] Comment: HIV-1 p24 Ag and/or HIV-1/HIV-2 Ab not detected. A test result that is nonreactive does not exclude the possibility of exposure to or infection with HIV-1 and/or HIV-2. Nonreactive results in this assay for individuals with prior exposure to HIV-1 and/or HIV-2 may be due to antigen and antibody levels that are below the limit of detection of this assay. The Britt Ball Warper Tender HIV Ag/Ab Combo assay result and supplemental assay results should be interpreted in conjunction with the patient's clinical presentation, history and other laboratory results. If the results are inconsistent with clinical evidence, additional testing is suggested to confirm the result. Hepatitis B Surface Antigen Negative Negative [facility] Hepatitis C Antibody Nonreactive Nonreactive [facility] Comment: Antibodies to HCV not detected; does not exclude early acute HCV infection. 07/29/2020 10:5 2 AM EDT us Nahomy [place] HISTORICAL/NON ORDERABLE LABS Fi nal Result [facility] [address] from Last 3 Months or Most Recently Relevant to Health Maintenance Insurance [facility] C3 Care Teams Cord Splicer Relationship Specialty Start Date End Date Zoe Plascencia FNP [address] [place] [phone] PCP - General Family Medicine 01/11/24
--- OUTSIDE RECORDS SUMMARY | 2025-01-23 19:10 | XMS_ITS | Encounter Summary ---
Author Organization [employer] Address [address] [facility] 7t [place] [address] Care Team Providers Care Steel Heater Name Role Phone Destiny Byrne [facility] Primary Care Provider [phone] [facility] Primary Care Provider [phone] Reason for Visit * Reason Onset Date Comments Televisit 12/14/2023 Encounter Details Date Type Department Care Team ([facility] Contact Info) Description 12/14/2023 Telephone [facility] MEDICINE [address] [place], [place] [phone] Destiny Byrne FNP [address] [place], [place] [phone] Televisit Social History Tobacco Use Types Packs/Day [...] Description 02/07/2025 11:15 AM EDT Office Visit [facility] MEDICINE [address] [place] [address] Zoe Plascencia FNP [address] [place] [address] documented as of this encounter Visit Diagnoses Not on filedocumented in this encounter Additional Health Concerns Assessment Noted Time PHQ-9 Depression Total Score: 0 06/26/19 9:43 AM EST documented as of this encounter Care Teams Steel Heater Relationship Specialty Start Date End Date Destiny Byrne FNP [address] [place] [address] PCP - General Family Medicine 05/27/22 01/10/24 Zoe Plascencia FNP [address] [place] [address] PCP - General Family Medicine 01/11/24 documented as of this encounter
--- OUTSIDE RECORDS SUMMARY | 2025-01-23 19:10 | XMS_ITS | Encounter Summary ---
Author Organization [employer] Address [address] [place] [address] 7 [place] [address] Care Team Providers Care Senior Java Ui Developer Name Role Phone Destiny Byrne [facility] Primary Care Provider [phone] ZoarZoe [facility] Primary Care Provider [phone] Encounter Details Date Type Department Care Team (Late st Contact Info) Description 12/07/2022 Orders Only [facility] MEDICINE [address] [place] [address] [phone] Nemo Lagos DO [address] [place] [address] Social History Tobacco Use Types Packs/Day Years [...] Description 02/07/2025 11:15 AM EDT Office Visit [facility] MEDICINE [address] [place] [phone] ZoarZoe [facility] [address] [place], [place] [phone] documented as of this encounter Visit Diagnoses Not on filedocumented in this encounter Additional Health Concerns Assessment Noted Time PHQ-9 Depression Total Score: 0 06/26/19 9:43 AM EST documented as of this encounter Care Teams Senior Java Ui Developer Relationship Specialty Start Date End Date Destiny Byrne FNP [address] [place] [address] PCP - General Family Medicine 05/27/22 01/10/24 Zoe Plascencia FNP [address] [place] [address] PCP - General Family Medicine 01/11/24 documented as of this encounter
--- OUTSIDE RECORDS SUMMARY | 2025-01-23 19:10 | XMS_ITS | Encounter Summary ---
Author Organization [employer] Address [address] [facility] 7t [place] [address] Care Team Providers Care Shrimp Packer Name Role Phone Destiny Byrne [facility] Primary Care Provider [phone] [facility] Primary Care Provider [phone] Reason for Visit * Reason Onset Date Comments PAP 06/02/23 06/02/2023 Encounter Details Date Type Department Care Team ([facility] st Contact Info) Description 06/02/2023 Telephone [facility] MEDICINE [address] [place] [address] Destiny Byrne [facility] [address] [place] [address] PAP 06/02/23 Social History Tobacco Use Types [...] encounter Miscellaneous Notes * Telephone Encounter - Quinotn Nevarez - 06/02/2023 10:13 AM EST Tc from pt called to cancel pap smear 06/02/23. Rescheduled for 07/08/23 documented in this encounter Plan of Treatment Upcoming Encounters Date Type Department Care Team (Late st Contact Info) Description 02/07/2025 11:15 AM EDT Office Visit [facility] MEDICINE [address] [place] [address] Zoe Plascencia FNP [address] [place] [address] documented as of this encounter Visit Diagnoses Not on filedocumented in this encounter Additional Health Concerns Assessment Noted Time PHQ-9 Depression Total Score: 0 06/26/19 9:43 AM EST documented as of this encounter Care Teams Shrimp Packer Relationship Specialty Start Date End Date Destiny Byrne FNP [address] [place] [address] PCP - General Family Medicine 05/27/22 01/10/24 Zoe Plascencia FNP [address] [place] [address] PCP - General Family Medicine 01/11/24 documented as of this encounter
--- OUTSIDE RECORDS SUMMARY | 2025-01-23 19:10 | XMS_ITS | Clinical Summary ---
Author Organization [facility] Address [address] [place] [address] Care Team Providers Care Pc Tech Name Role Phone Unavailable Primary Care Provider [...] Health Maintenance Due Date Last Done Comments Depression Screening 05/10/2024 COVID-19 Vaccine ( season) 2025 05/28/2023, 07/22/2021, 11/01/2020, Additional history exists Influenza Vaccine (#1) 2025 , 04/26/2019, 07/07/2018, Additional history exists Cervical Cancer [...] 5 Years) and At-Risk Patients (6 to 49 Years) Aged Out 01/17/2019 No longer eligible [...]
== END 2025-01-23 17:52 | disposition home or self-care (01) ==
PROVIDERS: Emergency Provider Emergency Medicine
DX: M54.16 Radiculopathy, lumbar region (principal); M79.604 Pain in right leg; M54.50 Low back pain, unspecified; R20.2 Paresthesia of skin
CPT/HCPCS: 72100; 93971; 96372; 99283; 99284; J1885

== ENCOUNTER → 2025-01-23 13:18 | Outpatient (BNV) | payer MEDICAID, SELFPAY | PROVIDERS: Visit Provider Radiology Diagnostic Radiology | DX: M79.661 Pain in right lower leg (principal); M54.50 Low back pain, unspecified | CPT/HCPCS: 72100; 93971 ==

== ENCOUNTER 2025-03-07 10:04 | Outpatient (REF) | payer MEDICAID, SELFPAY ==
--- NOTE | ~2025-03-07 | XR_ITS ---
EXAMINATION: XR FOOT, RIGHT CLINICAL INFORMATION: Chronic right heel pain r/o stress fracture COMPARISON: None available. TECHNIQUE: AP, lateral, and oblique views of the right foot. FINDINGS: No abnormal sclerosis, lucency, periosteal new bone formation, or other abnormality is evident There is small plantar calcaneal spur. XR/XR foot RT min 3V IMPRESSION: There is a small plantar calcaneal spur. Electronically signed by: Addison Parks MD 03/07/2025 10:15 AM EDT
--- OUTSIDE RECORDS SUMMARY | 2025-03-07 09:15 | XMS_ITS | Encounter Summary ---
Author Organization [employer] Address [address] [facility] 7t [place] [address] Care Team Providers Care Outboard Motor Assembler Name Role Phone [place], [facility] Primary Care Provider [phone] Jaquelin Lopez RN Unavailable [phone] Dione Nevarez Unavailable Reason for Visit * Reason Comments Follow-up Encounter Details Date Type Department Care Team ([facility] st Contact Info) Description 03/07/2025 9:15 AM EDT Office Visit [facility] [address] [place], [place] [phone] [place] [facility] [address] [place], [place] [phone] Tinea pedis of right foot (Primary Dx); Mild asthma exacerbation; Chronic heel pain, right; Encounter for immunization; Encounter for vaccination Social History Tobacco Use Types Packs/Day Years Used Date Smoking Tobacco: Never Smokeless Tobacco: Never Tobacco Cessation:Counseling Given: Not Answered Alcohol Use Standard Drinks/Week Comments Never 0 (1 standard drink = 0.6 oz pur e alcohol) Depression Answer Date Recorded Patient Health Questionnaire-9 Score 0 01/30/2025 Patient Health Questionnaire-9 Score 0 01/30/2025 Last PHQ-9: Questionnaire Data Not on file 0 01/30/2025 Housing Stability Answer Date Recorded What is your housing situation today? I have yelena diaz 01/30/[address] you li ve. Do you have problems with any of the following? None of the above 01/30/2025 Food Insecurity Answer Date Recorded Within the past 12 months, y ou worried that your food would run out before you got money to buy more: Never True 01/30/2025 Within the past 12 months,th e food you bought just didn't last and you didn't have enough money to get more: Never True Transportation Answer Date Recorded In the past 12 months, has l ack of transportation kept you from medical appts, meetings, work or from getting things needed for daily living? No 01/30/2025 Utilities Answer Date Recorded In the past 12 months, has t he electric, gas, oil or water company threatened to shut off services in your home? No 01/30/2025 Depression Answer Date Recorded Patient Health Questionnaire-2 Score 0 01/30/2025 Internet Access Answer Date Recorded Internet Access Q1 Yes 01/30/2025 Internet Access Q2 Not on file 01/30/2025 Comments No Sex and Gender Information Value Date Recorded Sex Assigned at Female 03/09/2022 10:14 AM EDT Legal Sex Female 10:14 AM EDT Gender Identity Female 03/09/2022 10:14 AM EDT Sexual Orientation Straight 03/09/2022 10 :14 AM EDT documented as of this encounter Last Filed Vital Signs Vital Sign Reading Time Taken Comments Blood Pressure 112/80 03/07/2025 9:56 AM EDT Pulse 76 03/07/2025 9:56 AM EDT Temperature 37 C (98.6 F) 03/07/2025 9:56 AM EDT Respiratory Rate 18 03/07/2025 9:56 AM EDT Oxygen Saturation - - Inhaled Oxygen Concentration - - Weight 86.2 kg (190 lb) 03/07/2025 9:56 AM EDT Height 144.8 cm (4' 9 ) 03/07/2025 9:56 AM EDT Body Mass Index 41.12 03/07/2025 9:56 AM EDT documented in this encounter Plan of Treatment Not on file documented as of this encounter Procedures Procedure Name Priority Date/Time Associated Diagnosis Comments XR FOOT 3+ VIEWS RIGHT Routine 03/07/2025 10:24 AM EDT Chronic heel pain, right documented in this encounter Results * XR Foot 3+ Views Right (03/07/2025 10:24 AM EDT) Anatomical Region Laterality Modality Lower Extremities, Foot Right Radiogra phic Imaging 03/07/2025 10:2 4 AM EDT Narrative 03/07/2025 10:18 AM EDT [address] [address] XRay Report Signed Patient: Tabby Solitario MR#: [id number] : 1985 Acct:[id number] Age/Sex: 39 / F ADM Date: 03/07/25 Loc: [facility] Attending Dr: Zoe Plascencia FORMS DESIGNER Ordering Physician: Zoe Plascencia Date of Service: 03/07/25 Procedure(s): XR foot RT min 3V Accession Number(s): [id number] cc: Zoe Plascencia Reason for Exam: Chronic right heel pain r/o stress fracture EXAMINATION: XR FOOT, RIGHT CLINICAL INFORMATION: Chronic right heel pain r/o stress fracture COMPARISON: None available. TECHNIQUE: AP, lateral, and oblique views of the right foot. FINDINGS: No abnormal sclerosis, lucency, periosteal new bone formation, or other abnormality is evident There is small plantar calcaneal spur. XR/XR foot RT min 3V IMPRESSION: There is a small plantar calcaneal spur. Electronically signed by: Addison Parks MD 03/07/2025 10:15 AM EDT Dictated By: Addison Parks MD Signed By: <Electronically signed by Addison Parks MD in OV> 03/07/25 1015 DD/ 1024 TD/TT: 03/07/25 1012 Refuse Collector: Procedure Note Donotuseinterpreter, Image - 03/07/2025 [facility] [address] [place] [address] XRay Report Signed Patient: Tabby SolitarioMR#: [id number] : 1985Acct:[id number] Age/Sex: 39 / FADM Date: 03/07/25 Loc: [facility] Attending Dr: Zoe Plascencia FORMS DESIGNER Ordering Physician: Zoe Plascencia Date of Service: 03/07/25 Procedure(s): XR foot RT min 3V Accession Number(s): [id number] cc: [facility] FORMS DESIGNER Reason for Exam: Chronic right heel pain r/o stress fracture EXAMINATION: XR FOOT, RIGHT CLINICAL INFORMATION: Chronic right heel pain r/o stress fracture COMPARISON: None available. TECHNIQUE: AP, lateral, and oblique views of the right foot. FINDINGS: No abnormal sclerosis, lucency, periosteal new bone formation, or other abnormality is evident There is small plantar calcaneal spur. XR/XR foot RT min 3V IMPRESSION: There is a small plantar calcaneal spur. Electronically signed by: Addison Parks MD 03/07/2025 10:15 AM EDT RP Dictated By: Addison Parks MD Signed By: <Electronically signed by Addison Parks MD in OV> 03/07/25 1015 DD/ 1024 TD/TT: 03/07/25 1012 Refuse Collector: [facility] FORMS DESIGNER IMG XR PROCEDURES Final Resul t documented in this encounter Visit Diagnoses Diagnosis Tinea pedis of right foot- Primary Mild asthma exacerbation Chronic heel pain, right Encounter for immunization Encounter for vaccination documented in this encounter Additional Health Concerns Assessment Noted Time PHQ-9 Depression Total Score: 0 01/31/20 25 1:59 PM EDT documented as of this encounter Care Teams Outboard Motor Assembler Relationship Specialty Start Date End Date [facility] [address] [place] [address] PCP - General Family Medicine 01/11/24 Jaquelin Lopez, RYNE [address] [place] [address] Registered Nurse Family Medicine 01/24/25 Dione Nevarez 01/24/25 documented as of this encounter
--- OUTSIDE RECORDS SUMMARY | 2025-03-07 12:16 | XMS_ITS | Encounter Summary ---
Author Organization [employer] Address [address] [facility] 7t [place] [address] Care Team Providers Care Warehouse Unloader Name Role Phone Destniy Byrne ASSET ADMINISTRATOR Primary Care Provider [phone] ThaisZoe pritchard ASSET ADMINISTRATOR Primary Care Provider [phone] Jaquelin Lopez RN Unavailable [phone] Dione Nevarez Unavailable Reason for Visit * Reason Comments Med Refill Encounter Details Date Type Department Care Team (Late st Contact Info) Description 01/01/2023 Refill [facility] [address] [place], [place] [phone] Ronnie Odell MD [address] [place], [place] [phone] Acute non-recurrent frontal sinusitis Social History Tobacco [...] documented as of this encounter Care Teams Warehouse Unloader Relationship Specialty Start Date End Date Destiny Byrne FNP [address] [place] [address] PCP - General Family Medicine 05/27/22 01/10/24 ThaisZoe pritchard FNP [address] [place] [address] PCP - General Family Medicine 01/11/24 Jaquelin Lopez RN [address] [place] [address] Registered Nurse Family Medicine 01/24/25 Dione Nevarez 01/24/25 documented as of this encounter
--- OUTSIDE RECORDS SUMMARY | 2025-03-07 12:16 | XMS_ITS | Encounter Summary ---
Author Organization [email or web address] Address [address] [facility] 7t [place] [address] Care Team Providers Care Cigar Bander Name Role Phone [facility] Primary Care Provider [phone] Jaquelin Lopez RN Unavailable [phone] Dione Nevarez Unavailable Reason for Visit * Reason Onset Date Comments Chart Prep 03/07/2025 Encounter Details Date Type Department Care Team ([facility] st Contact Info) Description 03/07/2025 Telephone [facility] [address] [place], [place] [phone] [facility] [address] [place], [place] [phone] Chart Prep Social History Tobacco Use Types Packs/Day Years [...] encounter Miscellaneous Notes * Telephone Encounter - Estrella Jerome [place] - 03/07/2025 7:47 AM EDT Chart Prep Labs: not applicable Images: not applicable Referrals: appointment pending Vaccines due: Flu Screenings: LMP Overdue care gaps: PHQ-9, YOJANA-7, Oral health screening, and Disability screen documented in this encounter Plan of Treatment Not on file documented as of this encounter Visit Diagnoses Not on filedocumented in this encounter Additional Health Concerns Assessment Noted Time PHQ-9 Depression Total Score: 0 01/31/20 25 1:59 PM EDT documented as of this encounter Care Teams Cigar Bander Relationship Specialty Start Date End Date Zoe Plascencia FNP [address] [place] [address] PCP - General Family Medicine 01/11/24 Jaquelin Lopez, RYNE [address] [place] [address] Registered Nurse Family Medicine 01/24/25 Dione Nevarez 01/24/25 documented as of this encounter
--- OUTSIDE RECORDS SUMMARY | 2025-03-07 12:16 | XMS_ITS | Encounter Summary ---
Author Organization [employer] Address [address] [facility] 7t [place] [address] Care Team Providers Care Conditioning Machine Operator Name Role Phone Destiny Byrne Primary Care Provider [phone] ThaisZoe pritchard CONFERENCE ASSISTANT Primary Care Provider [phone] Jaquelin Lopez RN Unavailable [phone] Dione Nevarez Unavailable Reason for Visit * Reason Onset Date Comments Televisit 12/14/2023 Encounter Details Date Type Department Care Team (Late st Contact Info) Description 12/14/2023 Telephone [facility] [address] [place], [place] [phone] Destiny Byrne FNP [address] [place], [place] [phone] Televisit Social History Tobacco Use Types Packs/Day [...] documented as of this encounter Care Teams Conditioning Machine Operator Relationship Specialty Start Date End Date Destiny Byrne FNP [address] [place] [address] PCP - General Family Medicine 05/27/22 01/10/24 [facility] [address] [place] [address] PCP - General Family Medicine 01/11/24 Jaquelin Lopez, RN [address] [place] [address] Registered Nurse Family Medicine 01/24/25 Dione Nevarez 01/24/25 documented as of this encounter
--- OUTSIDE RECORDS SUMMARY | 2025-03-07 12:16 | XMS_ITS | Encounter Summary ---
Author Organization [employer] Address [address] [facility] 7t [place] [address] Care Team Providers Care Coat Hanger Shaper Machine Operator Name Role Phone Zoe Plascencia BOTTLE GAUGER Primary Care Provider [phone] Jaquelin Lopez RN Unavailable [phone] Dione Nevarez Unavailable Encounter Details Date Type Department Care Team (Latest Contact Info) Description 03/07/2025 Travel Social History Tobacco Use Types Packs/Day [...] is your housing situation today? I have yleena diaz 01/30/[address] you [...] Time PHQ-9 Depression Total Score: 0 01/31/20 1:59 PM EDT documented as of this encounter Care Teams Coat Hanger Shaper Machine Operator Relationship Specialty Start Date End Date Zoe Plascencia FNP [address] [place] [address] PCP - General Family Medicine 01/11/24 Jaquelin Lopez, RYNE [address] [place] [address] Registered Nurse Family Medicine 01/24/25 Dione Nevarez 01/24/25 documented as of this encounter
--- OUTSIDE RECORDS SUMMARY | 2025-03-07 12:16 | XMS_ITS | Encounter Summary ---
Author Organization [employer] Address [address] [facility] 7t [place] [address] Care Team Providers Care Banking Services Officer Name Role Phone Destiny Byrne Primary Care Provider [phone] RobsonZoe HANDY MAN Primary Care Provider [phone] Jaquelin Lopez RN Unavailable [phone] Dione Nevarez Unavailable Reason for Visit * Reason Onset Date Comments Appointment Request 11/23/2023 Encounter Details Date Type Department Care Team (Late st Contact Info) Description 11/23/2023 Telephone [facility] [address] [place], [place] [phone] Destiny Byrne FNP [address] [place], [place] [phone] Appointment Request Social History Tobacco Use Types [...] documented as of this encounter Care Teams Banking Services Officer Relationship Specialty Start Date End Date Destiny Byrne FNP [address] [place] [address] PCP - General Family Medicine 05/27/22 01/10/24 RobsonZoe FNP [address] [place] [address] PCP - General Family Medicine 01/11/24 Jaquelin Lopez RN [address] [place] [address] Registered Nurse Family Medicine 01/24/25 Dione Nevarez 01/24/25 documented as of this encounter
--- OUTSIDE RECORDS SUMMARY | 2025-03-07 12:16 | XMS_ITS ---
Author Organization [employer] Address [address] [place] [address] 7t [place] [address] Care Team Providers Care Street Light Servicer Helper Name Role Phone Zoe Plascencia HOUSEKEEPING ATTENDANT Primary Care Provider [phone] Jaquelin Lopez RN Unavailable [phone] Dione Nevarez Unavailable CM Complex Status:Enrolled (Active) Start date:01/24/2025 Enrollment date:01/30/2025 Enrollment reason:ADT Feed Overview ED- Pt went to [facility] ED on 01/23/25. Case Team Name Relationship Phone Jaquelin Lopez RN(Responsible Staff) Registered Nurse [phone] Continued Care and Services Coordination
--- OUTSIDE RECORDS SUMMARY | 2025-03-07 12:16 | XMS_ITS | Clinical Summary ---
Author Organization [facility] Address [address] [place] [address] Care Team Providers Care Road Machine Operator Name Role Phone Unavailable Primary Care Provider [...] 77 05/31/2021 12:46 AM EST Temperature 36.5 C (97.7 F) 05/31/2021 12:46 AM EST Respiratory Rate 16 05/31/2021 12:46 AM EST Oxygen Saturation 100% 05/31/2021 12:46 AM EST Inhaled Oxygen Concentration - - Weight 62.6 kg (138 lb) 05/30/2021 9:41 PM EST Height - - Body Mass Index - - Plan of Treatment Not on file
--- OUTSIDE RECORDS SUMMARY | 2025-03-07 12:16 | XMS_ITS | Encounter Summary ---
Author Organization [employer] Address [address] [facility] 7t [place] [address] Care Team Providers Care Metal Buggy Operator Name Role Phone [facility] Primary Care Provider [phone] Jaquelin Lopez RN Unavailable [phone] Dione Nevarez Unavailable Encounter Details Date Type Department Care Team ([facility] st Contact Info) Description 03/06/2025 Patient Outreach [facility] [address] [place], [place] [phone] [facility] [address] [place] [address] Social History Tobacco Use Types Packs/Day Years [...] documented as of this encounter Care Teams Metal Buggy Operator Relationship Specialty Start Date End Date Zoe Plascencia FNP [address] [place] [address] PCP - General Family Medicine 01/11/24 Jaquelin Lopez, RYNE [address] [place] [address] Registered Nurse Family Medicine 01/24/25 Dione Nevarez 01/24/25 documented as of this encounter
--- OUTSIDE RECORDS SUMMARY | 2025-03-07 12:16 | XMS_ITS ---
Author Organization [employer] Address [address] [place] [address] 7t [place] [address] Care Team Providers Care Carpet Measurer Name Role Phone Zoe Plascencia PIPE TESTING TECHNICIAN Primary Care Provider [phone] Jaquelin Lopez RN Unavailable Dione Nevarez Unavailable [facility] Complex Status:Enrolled (Active) Start date:01/24/2025 Enrollment date:01/30/2025 Enrollment reason:ADT Feed Overview ED- Pt went to [facility] ED on 01/23/25. Please outreach for enrollment. Case Team Name Relationship Phone Dione Nevarez(Responsible Staff) [phone] Continued Care and Services Coordination
--- OUTSIDE RECORDS SUMMARY | 2025-03-07 12:16 | XMS_ITS | Clinical Summary ---
Author Organization [employer] Address [address] [facility] 7t [place] [address] Care Team Providers Care Hot Sealing Machine Operator Name Role Phone Zoe Plascencia MANAGER PROTEIN Primary Care Provider [phone] Jaquelin Lopez RN Unavailable [phone] Dione Nevarez Unavailable Allergies No known active allergies Medications cyclobenzaprine (Flexeril) 10 MG tabletIndicatio ns:Thigh pain, musculoskeletal , right take 1 tablet by oral route at bedtime as needed 10 tablet 023 Active Additional Information Patient not taking.Reported on 01/30/2025 Nebulizers misc 1 kit if needed in the morning, at noon, in the evening, and at bedtime (Shortness of breath, cough, wheezing). Use as directed. Given in walk in center on 08/09/2023 education provided Active Deep Sea Nasal [place] 0.65 % nasal spray USE 1 SPRAY IN EACH NOSTRIL NEEDED FOR NASAL CONGESTION 44 mL 1 024 Active albuterol (Ventolin HFA) 108 (90 Base) MCG/ACT inhalerIndicati ons:Mild asthma exacerbation,Mo derate persistent asthma with acute exacerbation INHALE 2 PUFFS BY MOUTH EVERY 4 HOURS NEEDED FOR WHEEZING OR SHORTNESS OF BREATH 18 g 1 024 Active clotrimazole (Lotrimin) 1 % cream Apply topically 2 times daily. Use for 14 days. If improved but not fully gone, continue for a total of 28 days. 60 g 1 025 Active Additional Information Patient not taking.Reported on 01/30/2025 albuterol (2.5 MG/3ML) 0.083% nebulizer solutionIndicat ions:Moderate persistent asthma with acute exacerbation Take 3 mL (2.5 mg) by nebulization every 4 (four) hours if needed for wheezing. INHALE 1 AMPULE USING A NEBULIZER EVERY 6 HOURS NEEDED FOR WHEEZING OR SHORTNESS OF BREATH 90 mL 1 Active guaiFENesin (Mucinex) 600 MG 12 hr tablet Take 2 tablets (1,200 mg) by mouth if needed in the morning and at bedtime for cough or congestion. Do not crush, chew, or split. 30 tablet 025 2025 Active Additional Information Patient not taking.Reported on 01/30/2025 cetirizine (ZyrTEC) 10 MG tabletIndicatio ns:Allergic rhinitis, unspecified seasonality, unspecified trigger TAKE 1 TABLET BY MOUTH EVERY MORNING 30 tablet Active fluticasone (Flonase) 50 MCG/ACT nasal sprayIndication s:Allergic rhinitis, unspecified seasonality, unspecified trigger Use 1 spray each nostril daily. Shake gently. Before first use, prime pump. After use, clean tip and replace cap. 16 g Active ibuprofen 600 MG tablet TAKE 1 TABLET BY MOUTH EVERY 6 HOURS NEEDED FOR MILD PAIN 40 tablet 1 Active Additional Information Patient not taking.Reported on 01/30/2025 fluticasone furoate (Arnuity Ellipta) 100 MCG/ACT inhalerIndicati ons:Mild asthma exacerbation Inhale 2 puffs Once per day. Rinse mouth with water after use to reduce aftertaste and incidence of candidiasis. Do not swallow. 30 each Active clotrimazole (Lotrimin) 1 % creamIndication s:Tinea pedis of right foot Apply topically 2 times daily. 28 g Active fluticasone furoate (Arnuity Ellipta) 100 MCG/ACT inhalerIndicati ons:Mild asthma exacerbation Inhale 1 puff Once per day. Rinse mouth with water after use to reduce aftertaste and incidence of candidiasis. Do not swallow. 30 each 025 2024 Discontinued(R eorder (will not trigger notification to Pharmacy)) Active Problems Problem Noted Date Diagnosed Date [...] 12/14/2023 Mild asthma exacerbation 03/25/202310/2023 Overview (03/25/2023): -Brandt of prednisone 40mg for 5 days given 03/25/2023. -Flovent and albuterol script sent 03/25/2023 Assessment & Plan (03/25/2023 10:06 AM EST): -Brandt of prednisone 40mg for 5 days given [...] Encounters Date Type Department Care Team Description 03/07/2025 9:15 AM EDT Office Visit [facility] [address] [place] [phone] Zoe Plascencia FNP Tinea pedis of right foot (Primary Dx); Mild asthma exacerbation; Chronic heel pain, right; Encounter for immunization; Encounter for vaccination 03/07/2025 Travel 03/07/2025 Telephone [facility] [address] [place] [address] Zoe Plascencia FNP Chart Prep 03/06/2025 Patient Outreach [facility] [address] [place] [address] Zoe Plascencia FNP 02/27/2025 Patient Outreach [facility] [address] [place] [address] Zoe Plascencia FNP Care Management (C3CM- f/u call #2 lvm) 02/13/2025 Patient Outreach [address] [address] Zoe Plascencia FNP Care Management (C3- 1st f/u call lvm) 01/30/2025 Patient Outreach [address] [address] Zoe Plascencia FNP Care Coordination 01/30/2025 Plan of Care Documentation [address] [address] 01/30/2025 Patient Outreach [address] [address] Zoe Plascencia FNP Care Management (C3- initial assessment/ enrollment) 01/24/2025 Patient Outreach [address] [address] Zoe Plascencia FNP Care Coordination (CM/CHW outreach) 01/24/2025 Patient Outreach [address] [address] Zoe Plascencia FNP Care Coordination (CHW Chart Review) 01/24/2025 Patient Outreach [address] [address] Zoe Plascencia FNP Care Management ([facility]- chart review) 01/24/2025 Patient Outreach [address] [address] Zoe Plascencia FNP 12/21/[address] [address] Zoe Plascencia FNP chart prep 12/15/2024 Patient Outreach [facility] [address] [place] [address] Zoe Plascencia FNP Pre-visit Planning ([facility] unable to reach [facility] ) 12/12/2024 9:15 AM EDT Office Visit [address] [address] Lynnette Garza MD Viral URI with cough; Sore throat; Strep pharyngitis 12/12/2024 Travel 12/12/2024 Telephone [facility] [address] [place], [place] [phone] [place], [place], [facility] Nurse Triage from Last 3 Months Immunizations Immunization Administration Dates Next Due DTP 1985,1986,1986 DTaP 04/11/1990,07/09/1987 HPV, Quadrivalent 05/23/2007,12/23/2006,10/26/19 07 Hep B, Adolescent or Pediatric 07/08/1998,1997,03/11/1998 Hep B, adult 12/01/2023 Influenza injectable quadriv alent IIV4 with preservative 03/26/2015 Influenza injectable quadriv alent preservative free 05/07/2023,04/26/2019,07/07/2018 Influenza, IIV3, injectable 05/13/2010 Influenza, Split (incl. anahy fied surface antigen) 08/08/2013 Influenza, seasonal, injecta ble, preservative free 03/07/2025,06/23/2024 MMR 10/23/2015,11/26/1994,07/09/1987 OPV, Trivalent 07/09/1987, 7,1986,06/11 Pfizer Covid-19 Vaccine 12+ 03/07/2025,0 06/23/2024,05/28/2023,07/22,11/01/2020,10/11/2020 Pfizer Covid-19 Vaccine 12+ jian-sucrose (Quintana Cap) 07/22/2021 Pneumococcal Conjugate PCV 20 06/23/2024 Pneumococcal Polysaccharide PPSV23 01/17/2019 TD (adult), 2 Lf tetanus tox oid, preservative free, adsorbed 01/27/1999 Tdap 01/06/2021,,01/05/2019,08/18,09/30/2010 Family History Medical History Relation Name Comments Asthma Mother Olivia Cordova Hypertension Mother Olivia Rivasa Asthma Sister 1 Davonte Solitario Asthma Sister 2 [employer] [place] [employer] Relation Name Status Comments Mother Olivia Cordova Sister 1 Davonte Solitario Sister 2 [employer] [place] [employer] Social History Tobacco Use Types Packs/Day [...] Q2 Not on file 01/30/2025 Comments No Intention Date Recorded No desire [...] 18 03/07/2025 9:56 AM EDT Oxygen Saturation 98% 12/12/2024 9:27 AM EDT Inhaled Oxygen Concentration - - Weight 86.2 kg (190 lb) 03/07/2025 9:56 AM EDT Height 144.8 cm (4' 9 ) 03/07/2025 9:56 AM EDT Body Mass Index 41.12 03/07/2025 9:56 AM EDT Plan of Treatment Health Maintenance Due Date Last Done Comments Alcohol/Substance Use Screening 06/23/2025 06/23/2024 Family Planning (PISQ) 07/11/2025 07/11/2024 Depression Screening 01/30/2026 01/30/2025, 01/31/20 25 SDOH Screening 01/30/2026 01/30/2025 Disability Screening 03/07/2026 03/07/2025 Tobacco Screening 03/07/2026 03/07/2025 Lipid Panel 05/07/2028 05/07/2023, 07/22/2021 Cervical Cancer [...] Completed 12/01/2023, 07/08/1998, 04/15/1998, Additional history exists Pneumococcal Vaccine: Pediatrics (0 to 5 Years) and At-Risk Patients (6 to 49) Years Completed 06/23/2024, 01/17/2019 COVID-19 Vaccine Completed 03/07/2025, , 05/28/2023, Additional history exists Influenza Vaccine Completed 03/07/2025, , 05/07/2023, Additional history exists HIB Vaccines Aged Out No longer eligi [...] 10:24 AM EDT Chronic heel pain, right AMB REFERRAL TO ALLERGY Routine 01/30/2025 Mild persistent asthma without complication Allergic rhinitis, unspecified seasonality, unspecified trigger POC BRITT ID NOW STREP A Routine [...] Recently Relevant to Health Maintenance Results * XR Foot 3+ Views Right (03/07/2025 10:24 AM EDT) Anatomical Region Laterality Modality Lower Extremities, Foot Right Radiogra phic Imaging 03/07/2025 10:2 4 AM EDT Narrative 03/07/2025 10:18 AM EDT [address] [address] XRay Report Signed Patient: Tabby Solitario MR#: [id number] : 1985 Acct:[id number] Age/Sex: 39 / F ADM Date: 03/07/25 Loc: HHX Attending Dr: Zoe DAO Ordering Physician: Zoe Plascencia Date of Service: 03/07/25 Procedure(s): XR foot RT min 3V Accession Number(s): [id number] cc: Zoe Plascencia Reason for Exam: Chronic [...] 03/07/25 1015 DD/ 1024 TD/TT: 03/07/25 1012 Videotape Operator: Procedure Note Donotuseinterpreter, Image - 03/07/[address] [address] XRay Report Signed Patient: Tabby SolitarioMR#: [id number] : 1985Acct:[id number] Age/Sex: 39 / FADM Date: 03/07/25 Loc: HO.HHCX Attending Dr: Zoe Plascencia MANAGER PROTEIN Ordering Physician: Zoe Plascencia Date of Service: 03/07/25 Procedure(s): XR foot RT min 3V Accession Number(s): [id number] cc: ThaisZoe pritchard [facility] Reason for Exam: Chronic right heel pain [...] 03/07/25 1015 DD/ 1024 TD/TT: 03/07/25 1012 Videotape Operator: Result [facility] IMG XR PROCEDURES Final Resul t * Referral to Allergy (01/30/2025) Result [facility] OUTPATIENT REFERRAL ORDERABLE S Final Result * POCT Rapid Influenza B BRITT ID NOW (12/12/2024 9:28 AM EDT) Influenza B Negative Negative, Indeterminate [facility] Swab 12/12/2024 9:28 AM EDT Lynnette Man MD POINT OF CARE TEST EN TER/EDIT ORDERABLES Final Result [facility] [address] [place] [phone] * POCT Rapid Influenza A BRITT ID NOW (12/12/2024 9:28 AM EDT) [facility] Influenza A Negative Negative, Indeterminate [facility] Swab 12/12/2024 9:28 AM EDT us Lynnette Man MD POINT OF CARE TEST EN TER/EDIT ORDERABLES Final Result Performing Organization Address [facility] Co de Phone Number [facility] [address] [place] [phone] * (ABNORMAL) POCT Rapid Strep A BRITT ID NOW (12/12/2024 9:28 AM EDT) [facility] Rapid Strep A Screen Positive( A) Negative, None Detected Swab 12/12/2024 9:28 AM EDT Lynnette Man MD POINT OF CARE TEST EN TER/EDIT ORDERABLES Final Result * POCT Rapid Covid-19 BinaxNOW (12/12/2024 9:28 AM EDT) [facility] Rapid COVID Ag Negative [facility] Swab 12/12/2024 9:28 AM EDT Lynnette Man MD POINT OF CARE TEST EN TER/EDIT ORDERABLES Final Result Performing Organization Address [facility] Co de Phone Number [facility] [address] [place] [phone] * HPV mRNA E6/E7 w/Reflex to HPV Genotypes 16, 18/45 (07/08/2023 11:07 AM EST) [facility] HPV nRNA E6/E7 Not Detected Not Detected [facility] Comment:Methodology: Transcr iption-Mediated AmplificationThis assay detects E6/E7 viral messenger RNA (mRNA) from 14high-risk HPV types (16,18,31,33,35,39,45,51,52,56,58,59,66,68).Cervical sources are required for HPV testing.If a vaginal source from a patient who has had atotal hysterectomy with removal of cervix wassubmitted, please contact the testing laboratoryfor alternative testing options.For additional information, please refer tohttp://[email or web address]/faq/QGZ847l6(This link if provided for information/educational purposes only.)THIS TEST WAS PERFORMED AT:[employer] [place] [phone] MÉNDEZ MD HPV mRNA E6/E7 TNP [facility] HPV 16 RNA [facility] HPV 18/45 RNA [facility] 07/08/2023 11:0 7 AM EST 07/09/2023 11:30 AM EST Davonte Cuellar CNM LAB CYTOLOGY ORDERABLES F inal Result [facility] [address] [place] [address] [phone] * Pap Smear (07/08/2023 11:07 AM EST) Swab Cervix uteri structure / Unknown 07/08/2023 11:07 AM EST 07/09/2023 11:30 AM EST Narrative [facility] - 07/21/2023 4:17 PM EDT ----- ------- Name: Tabby Solitario Age/Sex: 38/F : 1985 Unit#: [id number] Attend Dr: DAVONTE CUELLAR CNM Re07/08/23 Status: DEP REF Location: HHCLNP Disch: ----- ------- SPEC : [id number] RECD: 07/09/23 STATUS: RADHA HUNG NUM: [id number] PEBBLES: 07/08/23-[address]: DAVONTE CUELLAR [facility] ENTERED: 07/09/23 SP TYPE: Pap Smr OT DR: ORDERED: Pap Smear Interpretation Satisfactory for evaluation. Negative for intraepithelial lesion or malignancy. HPV mRNA E6/E7: NOT DETECTED This assay detects E6/E7 viral messenger RNA (mRNA) from 14 high-risk HPV types (16, 18, 31, 33, 35, 39, 45, 51, 52, 56, 58, 59, 66, 68) HPV testing performed by [employer], [place], [place]. See reference laboratory portion of the EMR for entire report. Clinical Information LMP: Unknown date Previous PAP test: Unknown date/findings Material Received ThinPrep-Cervical ----- ------- Signed (signature on file) ALVAREZ Graham ([facility]) 07/21/23 1617 ----- ------- END OF REPORT Davonte Cuellar CN LAB CYTOLOGY ORDERABLES F inal Result Performing Organization Address [facility] Co de Phone Number [facility] [address] [place] [phone] * Lipid Panel, Standard (05/07/2023 11:21 AM EST) Triglycerides 53 <150 mg/dL [facility] Comment:Desirable Triglyceri de: less than 150 mg/dLBorderline High Triglyceride 150-199 mg/dLHigh Triglyceride: 200-499 mg/dLVery High Triglyceride: greater than or equal to 5OO mg/dL Cholesterol 132 <200 mg/dL [facility] Comment:Desirable Cholestero l: less than 200 mg/dLBorderline High Cholesterol: 200-239 mg/dLHigh Cholesterol: greater than 239 mg/dL LDL Cholesterol Calculated 73 <100 mg/dL [facility] Comment:Desirable LDL: less than 100 mg/dLNear Optimal/Above Optimal LDL: 110- 129 mg/dLBorderline High LDL: 130-159 mg/dLHigh LDL: 160-189 mg/dLVery High LDL: greater than or equal to 190 mg/dL HDL Cholesterol 49 >40 mg/dL [facility] Comment:Desirable HDL: great er than 40 mg/dL Note: This HDL assay may give artificially low results in patients with liver disease. Blood Venous blood specimen / Unknown 05/07/2023 11:21 AM EST 05/07/2023 1:16 PM EST Destiny Byrne MANAGER PROTEIN LAB BLOOD ORDERABLES Final Resu lt Performing Organization Address [facility] Co de Phone Number [facility] [address] [place] [address] [phone] * HIV AB/AG (07/29/2020 10:52 AM [...] of detection of this assay. [employer] HIV Ag/Ab Combo assay result and supplemental assay results should be interpreted in conjunction with the patient's clinical presentation, history and other laboratory results. If the results are inconsistent with clinical evidence, additional testing is suggested to confirm the result. Hepatitis B Surface Antigen Negative Negative [facility] Hepatitis C Antibody Nonreactive Nonreactive [facility] Comment: Antibodies to HCV not detected; does not exclude early acute HCV infection. 07/29/2020 10:5 2 AM EDT us [facility] HISTORICAL/NON ORDERABLE LABS Fi nal Result Performing Organization Address City/State/[facility] Co de Phone Number [facility] [address] from Last 3 Months or Most Recently Relevant to Health Maintenance Insurance [facility] C3 Care Teams Hot Sealing Machine Operator Relationship Specialty Start Date End Date Zoe PlascenciaSYLWIA [address] [place] [address] PCP - General Family Medicine 01/11/24 Jaquelin Lopez, RYNE [address] [place] [phone] Registered Nurse Family Medicine 01/24/25 Dione Nevarez 01/24/25
--- OUTSIDE RECORDS SUMMARY | 2025-03-07 12:16 | XMS_ITS | Encounter Summary ---
Author Organization [employer] Address [address] [facility] 7t [place] [address] Care Team Providers Care Paramedic Rn Name Role Phone CleveMaggie mcbridee RACE BOARD ATTENDANT Primary Care Provider [phone] ThaisZoe pritchard RACE BOARD ATTENDANT Primary Care Provider [phone] Jaquelin Lopez RN Unavailable [phone] Dione Nevarez Unavailable Encounter Details Date Type Department Care Team (Late st Contact Info) Description 12/07/2022 Orders Only [facility] [address] [place], [place] [phone] Nemo Lagos DO [address] [place], [place] [phone] Social History Tobacco Use Types Packs/Day Years [...] documented as of this encounter Care Teams Paramedic Rn Relationship Specialty Start Date End Date Destiny Byrne FNP [address] [place] [address] PCP - General Family Medicine 05/27/22 01/10/24 PhoenixZoe FNP [address] [place] [address] PCP - General Family Medicine 01/11/24 Jaquelin Lopez RN [address] [place] [address] Registered Nurse Family Medicine 01/24/25 Dione Nevarez 01/24/25 documented as of this encounter
--- OUTSIDE RECORDS SUMMARY | 2025-03-07 12:16 | XMS_ITS | Encounter Summary ---
Author Organization [employer] Address [address] [facility] 7t [place] [address] Care Team Providers Care Nitric Acid Concentrator Operator Name Role Phone Destiny Byrne EXECUTIVE ASSOCIATE Primary Care Provider [phone] [place] Haven[place] EXECUTIVE ASSOCIATE Primary Care Provider [phone] Jaquelin Lopez RN Unavailable [phone] Dione Nevarez Unavailable Reason for Visit * Reason Comments Med Refill Encounter Details Date Type Department Care Team (Late st Contact Info) Description 08/09/2022 Refill [facility] [address] [place] [phone] Elsy Thompson MD [address] [place], [place] [phone] Allergic rhinitis, unspecified seasonality, unspecified trigger Social [...] documented as of this encounter Care Teams Nitric Acid Concentrator Operator Relationship Specialty Start Date End Date Destiny Byrne FNP [address] [place] [address] PCP - General Family Medicine 05/27/22 01/10/24 Zoe Plascencia FNP [address] [place] [phone] PCP - General Family Medicine 01/11/24 Jaquelin Lopez RN [address] [place] [phone] Registered Nurse Family Medicine 01/24/25 Dione Nevarez 01/24/25 documented as of this encounter
--- OUTSIDE RECORDS SUMMARY | 2025-03-07 12:16 | XMS_ITS | Encounter Summary ---
Author Organization [employer] Address [address] [facility] 7t [place] [address] Care Team Providers Care Towboat Pilot Name Role Phone Destiny Byrne Primary Care Provider [phone] CaneadeaZoe DISH MACHINE OPERATOR Primary Care Provider [phone] Jaquelin Lopez RN Unavailable [phone] Dione Nevarez Unavailable Reason for Visit * Reason Onset Date Comments PAP 06/02/23 06/02/2023 Encounter Details Date Type Department Care Team (Late st Contact Info) Description 06/02/2023 Telephone [facility] [address] [place], [place] [phone] Destiny Byrne FNP [address] [place], [place] [phone] PAP 06/02/23 Social History Tobacco Use Types [...] documented as of this encounter Care Teams Towboat Pilot Relationship Specialty Start Date End Date Destiny Byrne FNP [address] [place] [address] PCP - General Family Medicine 05/27/22 01/10/24 [facility] [address] [place] [address] PCP - General Family Medicine 01/11/24 Jaquelin Lopez, RN [address] [place] [address] Registered Nurse Family Medicine 01/24/25 Dione Nevarez 01/24/25 documented as of this encounter
--- OUTSIDE RECORDS SUMMARY | 2025-03-07 12:16 | XMS_ITS | Encounter Summary ---
Author Organization [employer] Address [address] [place] [address] 7t [place] [address] Care Team Providers Care Creel Operator Name Role Phone Destiny Byrne Primary Care Provider [phone] ThaisZoe pritchard DESIGN TECH Primary Care Provider [phone] Jaquelin Lopez RN Unavailable [phone] Dione Nevarez Unavailable Reason for Visit * Reason Onset Date Comments Results 11/12/2022 Encounter Details Date Type Department Care Team (Late st Contact Info) Description 11/12/[address] [facility] [address] [place], [place] [phone] Destiny Byrne FNP [address] [place], [place] [phone] Results Social History Tobacco Use Types Packs/Day [...] Miscellaneous Notes * Telephone Encounter - Renan Garnica RN - 11/12/2022 11:43 AM EDT T/C [...] done on 11/06. Please contact pt at [phone] documented in this encounter Plan of Treatment Not on file documented as of this encounter Visit Diagnoses Not on filedocumented in this encounter Additional Health Concerns Assessment Noted Time PHQ-9 Depression Total Score: 0 06/26/19 23 9:43 AM EST documented as of this encounter Care Teams Creel Operator Relationship Specialty Start Date End Date Destiny Byrne FNP [address] [place] [address] PCP - General Family Medicine 05/27/22 01/10/24 Zoe Plascencia FNP [address] [place] [address] PCP - General Family Medicine 01/11/24 Jaquelin Lopez RN [address] [place] [address] Registered Nurse Family Medicine 01/24/25 Dione Nevarez 01/24/25 documented as of this encounter
--- OUTSIDE RECORDS SUMMARY | 2025-03-07 12:16 | XMS_ITS | Encounter Summary ---
Author Organization [employer] Address [address] [place] [address] 7t [place] [address] Care Team Providers Care Welding Process Engineer Name Role Phone Destiny Byrne Primary Care Provider [phone] ThaisZoe pritchard SUPERVISOR PLASTERING Primary Care Provider Jaquelin Lopez RN Unavailable [phone] Dione Nevarez Unavailable Reason for Visit * Reason Onset Date Comments Nurse Triage 12/14/2022 Encounter Details Date Type Department Care Team (Late st Contact Info) Description 12/14/2022 Telephone [facility] [address] [place], [place] [phone] Destiny Byrne FNP [address] [place], [place] [phone] Nurse Triage Social History Tobacco Use Types [...] a limp. Advised Pt to come to [facility] to be seen this evening and [...] accepted this outcome Please contact pt at [phone] documented in this encounter Plan of Treatment Not on file documented as of this encounter Visit Diagnoses Not on filedocumented in this encounter Additional Health Concerns Assessment Noted Time PHQ-9 Depression Total Score: 0 06/26/19 23 9:43 AM EST documented as of this encounter Care Teams Welding Process Engineer Relationship Specialty Start Date End Date Destiny Byrne FNP [address] [place] [address] [phone] PCP - General Family Medicine 05/27/22 01/10/24 SigurdZoe FNP [address] [place] [address] PCP - General Family Medicine 01/11/24 Jaquelin Lopez RN [address] [place] [phone] Registered Nurse Family Medicine 01/24/25 Dione Nevarez 01/24/25 documented as of this encounter
== END 2025-03-07 10:05 | disposition home or self-care (01) ==
LOC: HO.HHCX 10:04
PROVIDERS: Visit Provider Registered Nurse
DX: M79.671 Pain in right foot (principal); G89.29 Other chronic pain
CPT/HCPCS: 73630

== ENCOUNTER → 2025-03-07 10:05 | Outpatient (BNV) | payer MEDICAID, SELFPAY | PROVIDERS: Visit Provider Radiology Diagnostic Radiology | DX: M77.31 Calcaneal spur, right foot (principal) | CPT/HCPCS: 73630 ==